=== PATIENT | male | born 1945 | race Caucasian/White ===

== ENCOUNTER 2017-03-31 08:00 | Outpatient (CLI) | payer MEDICARE, OTHER ==
[2017-03-31 19:31] LABS: ALBUMIN/GLOBULIN RATIO 1.4 (1.0-2.2); BILIRUBIN,TOTAL 0.9 mg/dL (0.2-1.0); BUN - BLOOD UREA NITROGEN 16 mg/dL (6-20); CALCIUM 9.3 mg/dL (8.5-10.3); CARBON DIOXIDE - CO2 25 mmol/L (21-32); CHLORIDE 101 mmol/L (101-111); CHOL/HDL RATIO 3.1 (<5.0); CHOLESTEROL 144 mg/dL; CREATININE 1.2 mg/dL (0.6-1.2); GFR - MDRD 60 (>89); GLUCOSE 157 mg/dL (70-100); HDL CHOLESTEROL 46 mg/dL; LDL/HDL RATIO 1.4 (<3.6); POTASSIUM 4.6 mmol/L (3.5-5.0); SODIUM 136 mmol/L (135-145); TOTAL PROTEIN 7.2 g/dL (6.7-8.2); TRIGLYCERIDES 176 mg/dL; VLDL CHOLESTEROL 35 mg/dL
[2017-03-31 20:15] LABS: HEMOGLOBIN A1C 0.89 g/dL
== END 2017-03-31 08:01 | disposition home or self-care (01) ==
LOC: LAB.WCP 08:00
PROVIDERS: ATTEND Physician Assistant Medical
DX: Z51.81 Encounter for therapeutic drug level monitoring (principal); E78.9 Disorder of lipoprotein metabolism, unspecified; E11.9 Type 2 diabetes mellitus without complications
CPT/HCPCS: 36415; 80053; 80061; 83036

== ENCOUNTER 2017-10-14 13:03 | Outpatient (CLI) | payer MEDICARE, OTHER ==
[2017-10-14 19:13] LABS: HB2 TOTAL 15.5 g/dL; HEMOGLOBIN A1C 0.69 g/dL; HEMOGLOBIN A1C % 6.2 % (4.6-6.2)
[2017-10-14 19:20] LABS: ALBUMIN 3.9 g/dL (3.2-5.5); ALBUMIN/GLOBULIN RATIO 1.5 (1.0-2.2); ALKALINE PHOSPHATASE 48 IU/L (42-121); ALT ALANINE AMINOTRANSFERASE 24 IU/L (10-60); AST ASPARTATE AMINOTRANSFERASE 27 IU/L (10-42); BUN - BLOOD UREA NITROGEN 12 mg/dL (6-20); CALCIUM 8.6 mg/dL (8.5-10.3); CARBON DIOXIDE - CO2 26 mmol/L (21-32); CHLORIDE 100 mmol/L (101-111); CHOL/HDL RATIO 2.7 (<5.0); CHOLESTEROL 105 mg/dL; GFR - MDRD 74 (>89); GLUCOSE 128 mg/dL (70-100); HDL CHOLESTEROL 39 mg/dL; LDL CHOLESTEROL,CALCULATED 41 mg/dL; LDL/HDL RATIO 1.1 (<3.6); SODIUM 135 mmol/L (135-145); TOTAL PROTEIN 6.5 g/dL (6.7-8.2); VLDL CHOLESTEROL 25 mg/dL
== END 2017-10-14 13:04 ==
LOC: LAB.WCP 13:03
PROVIDERS: ATTEND Physician Assistant Medical
DX: Z51.81 Encounter for therapeutic drug level monitoring (principal); E78.9 Disorder of lipoprotein metabolism, unspecified; E11.9 Type 2 diabetes mellitus without complications
CPT/HCPCS: 36415; 80053; 80061; 83036; 83721

== ENCOUNTER 2018-05-26 13:11 | Outpatient (CLI) | payer MEDICARE, OTHER ==
[2018-05-26 19:57] LABS: BASOPHILS # (AUTO) 0.1 10^3/uL (0.0-0.1); BASOPHILS % (AUTO) 0.7 %; EOSINOPHILS # (AUTO) 0.3 10^3/uL (0.0-0.7); EOSINOPHILS % (AUTO) 3.2 %; HGB - HEMOGLOBIN 14.3 g/dL (14.0-18.0); LYMPHOCYTES # (AUTO) 2.4 10^3/uL (1.5-3.5); LYMPHOCYTES % (AUTO) 30.8 %; MEAN CORPUSCULAR HEMOGLOBIN 34.6 pg (27.0-31.0); MEAN CORPUSCULAR HGB CONC 33.4 g/dL (32.0-36.0); MEAN CORPUSCULAR VOLUME 103.5 fL (80.0-94.0); MEAN PLATELET VOLUME 11.1 fL (7.4-11.4); MONOCYTES # (AUTO) 0.4 10^3/uL (0.0-1.0); MONOCYTES % (AUTO) 4.9 %; NEUTROPHILS # (AUTO) 4.7 10^3/uL (1.5-6.6); NEUTROPHILS % (AUTO) 60.4 %; PLT - PLATELET COUNT 183 10^3/uL (130-450); RED BLOOD COUNT 4.14 10^6/uL (4.70-6.10); RED CELL DISTRIBUTION WIDTH 13.2 % (12.0-15.0); WHITE BLOOD COUNT 7.8 x10^3/uL (4.8-10.8)
[2018-05-26 20:22] LABS: HB2 TOTAL 14.8 g/dL; HEMOGLOBIN A1C 0.66 g/dL; HEMOGLOBIN A1C % 6.2 % (4.6-6.2)
[2018-05-26 20:24] LABS: ALBUMIN 3.9 g/dL (3.2-5.5); ALBUMIN/GLOBULIN RATIO 1.4 (1.0-2.2); ALKALINE PHOSPHATASE 57 IU/L (42-121); ALT ALANINE AMINOTRANSFERASE 20 IU/L (10-60); AST ASPARTATE AMINOTRANSFERASE 22 IU/L (10-42); BILIRUBIN,TOTAL 0.6 mg/dL (0.2-1.0); BUN - BLOOD UREA NITROGEN 10 mg/dL (6-20); CALCIUM 8.8 mg/dL (8.5-10.3); CARBON DIOXIDE - CO2 26 mmol/L (21-32); CHLORIDE 103 mmol/L (101-111); CHOL/HDL RATIO 2.7 (<5.0); CHOLESTEROL 129 mg/dL; CREATININE 1.1 mg/dL (0.6-1.2); GFR - MDRD 66 (>89); GLUCOSE 121 mg/dL (70-100); HDL CHOLESTEROL 47 mg/dL; LDL CHOLESTEROL,CALCULATED 47 mg/dL; SODIUM 137 mmol/L (135-145); TOTAL PROTEIN 6.7 g/dL (6.7-8.2); VLDL CHOLESTEROL 35 mg/dL
[2018-05-28 13:42] LABS: HEPATITIS C ANTIBODY NON-REACTIVE (NON-REACTIVE)
== END 2018-05-26 23:59 | disposition home or self-care (01) ==
LOC: LAB.WCP 13:11
PROVIDERS: ATTEND Physician Assistant Medical
DX: E11.9 Type 2 diabetes mellitus without complications (principal); Z12.5 Encounter for screening for malignant neoplasm of prostate; E78.9 Disorder of lipoprotein metabolism, unspecified; K21.9 Gastro-esophageal reflux disease without esophagitis; Z11.59 Encounter for screening for other viral diseases
CPT/HCPCS: 36415; 80053; 80061; 82043; 83036; 85025; 86803; G0103; 83721; 84153

== ENCOUNTER → 2019-02-23 | Outpatient (CLI) | payer MEDICARE, OTHER ==
[2019-02-23 18:32] LABS: CALCIUM 8.9 mg/dL (8.5-10.3)
[2019-02-23 18:38] LABS: HB2 TOTAL 14.9 g/dL; HEMOGLOBIN A1C 0.67 g/dL; HEMOGLOBIN A1C % 6.3 % (4.6-6.2)
== END ==
LOC: LAB.WCP 08:00
PROVIDERS: ATTEND Physician Assistant Medical
DX: E11.9 Type 2 diabetes mellitus without complications (principal)
CPT/HCPCS: 36415; 80048; 83036

== ENCOUNTER 2020-08-29 09:58 | Outpatient (CLI) | payer MEDICARE, OTHER ==
[2020-08-29 12:05] LABS: BASOPHILS # (AUTO) 0.1 10^3/uL (0.0-0.1); BASOPHILS % (AUTO) 1.1 %; EOSINOPHILS # (AUTO) 0.4 10^3/uL (0.0-0.7); EOSINOPHILS % (AUTO) 4.7 %; HCT - HEMATOCRIT 44.5 % (42.0-52.0); HGB - HEMOGLOBIN 15.1 g/dL (14.0-18.0); LYMPHOCYTES # (AUTO) 2.1 10^3/uL (1.5-3.5); LYMPHOCYTES % (AUTO) 25.1 %; MEAN CORPUSCULAR HEMOGLOBIN 34.6 pg (27.0-31.0); MEAN CORPUSCULAR HGB CONC 33.9 g/dL (32.0-36.0); MEAN CORPUSCULAR VOLUME 101.8 fL (80.0-94.0); MEAN PLATELET VOLUME 12.8 fL (7.4-11.4); MONOCYTES # (AUTO) 0.5 10^3/uL (0.0-1.0); MONOCYTES % (AUTO) 5.3 %; NEUTROPHILS # (AUTO) 5.4 10^3/uL (1.5-6.6); NEUTROPHILS % (AUTO) 63.4 %; PLT - PLATELET COUNT 210 10^3/uL (130-450); RED BLOOD COUNT 4.37 10^6/uL (4.70-6.10); RED CELL DISTRIBUTION WIDTH 12.5 % (12.0-15.0); WHITE BLOOD COUNT 8.5 x10^3/uL (4.8-10.8)
[2020-08-29 12:58] LABS: ALBUMIN/GLOBULIN RATIO 1.3 (1.0-2.2); ALKALINE PHOSPHATASE 71 IU/L (42-121); ALT ALANINE AMINOTRANSFERASE 34 IU/L (10-60); AST ASPARTATE AMINOTRANSFERASE 23 IU/L (10-42); BILIRUBIN,TOTAL 0.8 mg/dL (0.2-1.0); BUN - BLOOD UREA NITROGEN 18 mg/dL (6-20); CALCIUM 9.4 mg/dL (8.5-10.3); CARBON DIOXIDE - CO2 25 mmol/L (21-32); CHLORIDE 100 mmol/L (101-111); CHOL/HDL RATIO 2.6 (<5.0); CHOLESTEROL 128 mg/dL; CREATININE 1.2 mg/dL (0.6-1.2); GFR - MDRD 59 (>89); GLUCOSE 159 mg/dL (70-100); HDL CHOLESTEROL 50 mg/dL; LDL CHOLESTEROL,CALCULATED 39 mg/dL; LDL/HDL RATIO 0.8 (<3.6); POTASSIUM 4.8 mmol/L (3.5-5.0); SODIUM 135 mmol/L (135-145); TOTAL PROTEIN 7.2 g/dL (6.7-8.2); TRIGLYCERIDES 195 mg/dL; VLDL CHOLESTEROL 39 mg/dL
[2020-08-29 13:05] LABS: THYROID STIMULATING HORMONE 3.1 uIU/mL (0.34-5.60)
[2020-08-29 13:14] LABS: ESTIMATED AVERAGE GLUCOSE 134 mg/dL (70-100); HEMOGLOBIN A1c% 6.3 % (4.27-6.07)
[2020-08-29 13:35] LABS: CREATININE,URINE 120.3 mg/dL; MICROALBUMIN,URINE 0.6 mg/dL (0-300.0)
== END 2020-08-29 23:59 | disposition home or self-care (01) ==
LOC: LAB.WCP 09:58
PROVIDERS: ATTEND Physician Assistant Medical
DX: I10 Essential (primary) hypertension (principal); E11.9 Type 2 diabetes mellitus without complications; E78.5 Hyperlipidemia, unspecified
CPT/HCPCS: 36415; 80053; 80061; 82043; 82570; 83036; 83721; 84443; 85025

== ENCOUNTER 2021-02-12 08:00 | Outpatient (CLI) | payer MEDICARE, OTHER | END 2021-02-12 23:59 | disposition home or self-care (01) | LOC: LAB.N 08:00 | PROVIDERS: ATTEND Nurse Practitioner | DX: R30.0 Dysuria (principal) | CPT/HCPCS: 87086 ==

== ENCOUNTER 2021-02-21 13:12 | Outpatient (CLI) | payer MEDICARE, OTHER ==
[2021-02-21 18:21] LABS: CREATININE,URINE 81.8 mg/dL; MICROALBUMIN,URINE 0.9 mg/dL (0-300.0)
[2021-02-21 18:36] LABS: ALBUMIN 3.8 g/dL (3.2-5.5); ALBUMIN/GLOBULIN RATIO 1.2 (1.0-2.2); ALKALINE PHOSPHATASE 63 IU/L (42-121); ALT ALANINE AMINOTRANSFERASE 42 IU/L (10-60); AST ASPARTATE AMINOTRANSFERASE 26 IU/L (10-42); BILIRUBIN,TOTAL 0.7 mg/dL (0.2-1.0); BUN - BLOOD UREA NITROGEN 16 mg/dL (6-20); CALCIUM 9.3 mg/dL (8.5-10.3); CARBON DIOXIDE - CO2 24 mmol/L (21-32); CHLORIDE 106 mmol/L (101-111); CHOLESTEROL 109 mg/dL; CREATININE 1.4 mg/dL (0.6-1.2); GFR - MDRD 50 (>89); GLUCOSE 129 mg/dL (70-100); HDL CHOLESTEROL 46 mg/dL; POTASSIUM 4.5 mmol/L (3.5-5.0); SODIUM 140 mmol/L (135-145); TOTAL PROTEIN 6.9 g/dL (6.7-8.2); TRIGLYCERIDES 165 mg/dL; VLDL CHOLESTEROL 33 mg/dL
[2021-02-21 18:37] LABS: CHOL/HDL RATIO 2.4 (<5.0); LDL CHOLESTEROL,CALCULATED 30 mg/dL; LDL/HDL RATIO 0.7 (<3.6)
[2021-02-21 20:10] LABS: ESTIMATED AVERAGE GLUCOSE 151 mg/dL (70-100); HEMOGLOBIN A1c% 6.9 % (4.27-6.07)
== END 2021-02-21 23:59 | disposition home or self-care (01) ==
LOC: LAB.WCP 13:12
PROVIDERS: ATTEND Physician Assistant Medical
DX: E11.9 Type 2 diabetes mellitus without complications (principal); E78.5 Hyperlipidemia, unspecified
CPT/HCPCS: 36415; 80053; 80061; 82043; 82570; 83036; 83721

== ENCOUNTER 2022-04-17 13:57 | Outpatient (CLI) | payer MEDICARE, OTHER ==
[2022-04-17 18:15] LABS: BUN - BLOOD UREA NITROGEN 17 mg/dL (6-20); CALCIUM 9.4 mg/dL (8.5-10.3); CARBON DIOXIDE - CO2 28 mmol/L (21-32); CHLORIDE 102 mmol/L (101-111); CHOL/HDL RATIO 2.4 (<5.0); CHOLESTEROL 123 mg/dL; CREATININE 1.3 mg/dL (0.6-1.2); GFR - MDRD 54 (>89); GLUCOSE 136 mg/dL (70-100); HDL CHOLESTEROL 51 mg/dL; LDL CHOLESTEROL,CALCULATED 37 mg/dL; LDL/HDL RATIO 0.7 (<3.6); SODIUM 139 mmol/L (135-145); TRIGLYCERIDES 176 mg/dL; VLDL CHOLESTEROL 35 mg/dL
[2022-04-17 20:45] LABS: ESTIMATED AVERAGE GLUCOSE 148 mg/dL (70-100); HEMOGLOBIN A1c% 6.8 % (4.27-6.07)
== END 2022-04-17 13:58 | disposition home or self-care (01) ==
LOC: LAB.N 13:57
PROVIDERS: ATTEND Physician Assistant Medical
DX: E11.9 Type 2 diabetes mellitus without complications (principal); E78.5 Hyperlipidemia, unspecified
CPT/HCPCS: 36415; 80048; 80061; 83036; 83721

== ENCOUNTER 2022-05-22 12:20 | Outpatient (CLI) | payer MEDICARE, OTHER | END 2022-05-22 12:21 | disposition home or self-care (01) | LOC: DI 12:20 | PROVIDERS: ATTEND Physician Assistant Medical | DX: I35.1 Nonrheumatic aortic (valve) insufficiency (principal); I35.8 Other nonrheumatic aortic valve disorders; I51.7 Cardiomegaly; I48.91 Unspecified atrial fibrillation; I77.810 Thoracic aortic ectasia | CPT/HCPCS: 93306 ==

== ENCOUNTER 2022-07-09 07:09 | Day surgery (SDC) | payer MEDICARE, OTHER ==
[2022-07-09] MEDS ORDERED: LACTATED RINGERS 1,000 ML IV ONE (07:17)
[2022-07-09] MEDS ORDERED: PROPOFOL 500 MG/50 ML 500 MG/50 ML VIAL ONE (08:15)
--- NOTE | 2022-07-09 08:43 | ANESTHESIA ---
Pre-Anesthesia VS, & Labs - Diagnosis screening - Procedure colonoscopy Vital Signs: Temp Pulse Resp BP Pulse Ox O2 Flow Rate 36 C L 55 L 16 123/80 96 07/09/22 07:23 07/09/22 07:23 07/09/22 07:23 07/09/22 07:23 07/09/22 07:23 Height: 5 ft 9 in Weight (kg): 91 kg Body Mass Index: 29.6 BMI Classification: Overweight - NPO >8 hours - Lab Results Current Lab Results: Laboratory Tests 07/09/22 07:42: POC Whole Bld Glucose 162 H Home Medications and Allergies Home Medications: Ambulatory Orders Apixaban [Eliquis] 1 tab PO DAILY 07/08/22 Aspirin [[place] Aspirin] 1 tab PO DAILY 07/08/22 Felodipine [Felodipine ER] 1 tab PO DAILY 07/08/22 Gabapentin [Neurontin] 600 mg PO TID 07/08/22 Lisinopril [Zestril] 1 tab PO DAILY 07/08/22 Propranolol ER [Inderal LA] 1 tab PO DAILY 07/08/22 Simvastatin [Zocor] 1 tab PO HS 07/08/22 metFORMIN [Glucophage] 2 tab PO BID 07/08/22 Apixaban [Eliquis] 1 tab PO DAILY 07/08/22 Aspirin [[place] Aspirin] 1 tab PO DAILY 07/08/22 Felodipine [Felodipine ER] 1 tab PO DAILY 07/08/22 Gabapentin [Neurontin] 600 mg PO TID 07/08/22 Lisinopril [Zestril] 1 tab PO DAILY 07/08/22 Propranolol ER [Inderal LA] 1 tab PO DAILY 07/08/22 Simvastatin [Zocor] 1 tab PO HS 07/08/22 metFORMIN [Glucophage] 2 tab PO BID 07/08/22 Allergies/Adverse Reactions: Allergies Allergy/AdvReac Type Severity Reaction Status Date / Time No Known Drug Allergies Allergy Verified 07/08/22 12:54 Anes History & Medical History - Anesthetic History Anesthesia Complications: reports: No previous complications - Medical History Cardiovascular: reports: Hypertension, High cholesterol, Atrial fibrillation Pulmonary: Endocrine/Autoimmune: reports: Type 2 diabetes Exam Dental: WNL Mouth Opening: Greater than 4 Fingerbreadths Neck Mobility: Normal Mallampati classification: III Thyromental Distance: greater than 6 cm Respiratory: Lungs clear Cardiovascular: Regular rate Plan Anesthesia Type: Total IV Consent for Procedure(s) Verified and Reviewed: Yes Code Status: Attempt Resuscitation ASA classification: 3-Severe systemic disease Is this case an emergency?: No
[2022-07-09] MEDS ORDERED: LACTATED RINGERS 450 ML IV ONE (09:20)
--- NOTE | 2022-07-09 09:29 | ANESTHESIA POST OP EVALUATION ---
Anesthesia Post Eval - Post Anesthesia Eval Vitals: Last Vital Signs Temp 36.2 C L 07/09/22 09:27 Pulse 74 07/09/22 09:27 Resp 16 07/09/22 09:27 BP 107/63 07/09/22 09:27 Pulse Ox 96 07/09/22 09:27 O2 Flow Rate CV Function Including HR & BP: Stable Pain Control: Satisfactory Nausea & Vomiting: Negative Mental Status: Baseline Respiratory Status: Airway Patent Hydration Status: Satisfactory Anesthesia Complications: None
[2022-07-09 09:52] VITALS: BP 129/80
== END 2022-07-09 07:10 | disposition home or self-care (01) ==
LOC: SDS 07:09
PROVIDERS: ATTEND Surgery
PROC: 0DBN8ZZ Excision of Sigmoid Colon, Via Natural or Artificial Opening Endoscopic (ICD-10-PCS; principal; 2022-07-09 08:30)
DX: Z12.11 Encounter for screening for malignant neoplasm of colon (principal); K63.5 Polyp of colon; K57.30 Diverticulosis of large intestine without perforation or abscess without bleeding; K64.8 Other hemorrhoids; E11.9 Type 2 diabetes mellitus without complications; I48.91 Unspecified atrial fibrillation; Z87.891 Personal history of nicotine dependence; Z79.01 Long term (current) use of anticoagulants
CPT/HCPCS: 45380; J7120

== ENCOUNTER 2022-10-22 13:33 | Outpatient (CLI) | payer MEDICARE, OTHER ==
[2022-10-22 18:33] LABS: ESTIMATED AVERAGE GLUCOSE 148 mg/dL (70-100); HEMOGLOBIN A1c% 6.8 % (4.27-6.07)
[2022-10-22 18:42] LABS: ALBUMIN 3.8 g/dL (3.2-5.5); ALBUMIN/GLOBULIN RATIO 1.2 (1.0-2.2); BILIRUBIN,TOTAL 0.6 mg/dL (0.2-1.0); CALCIUM 9.1 mg/dL (8.5-10.3); CREATININE 1.2 mg/dL (0.6-1.2); POTASSIUM 4.9 mmol/L (3.5-5.0)
== END 2022-10-22 13:34 | disposition home or self-care (01) ==
LOC: LAB.N 13:33
PROVIDERS: ATTEND Physician Assistant Medical
DX: E11.9 Type 2 diabetes mellitus without complications (principal)
CPT/HCPCS: 36415; 80053; 83036

== ENCOUNTER 2023-04-29 12:45 | Outpatient (CLI) | payer MEDICARE, OTHER ==
[2023-04-29 17:55] LABS: BASOPHILS # (AUTO) 0.1 10^3/uL (0.0-0.1); BASOPHILS % (AUTO) 0.9 %; EOSINOPHILS # (AUTO) 0.5 10^3/uL (0.0-0.7); EOSINOPHILS % (AUTO) 5.2 %; HCT - HEMATOCRIT 47.1 % (42.0-52.0); HGB - HEMOGLOBIN 15.1 g/dL (14.0-18.0); LYMPHOCYTES # (AUTO) 3.1 10^3/uL (1.5-3.5); LYMPHOCYTES % (AUTO) 33.9 %; MEAN CORPUSCULAR HEMOGLOBIN 33.9 pg (27.0-31.0); MEAN CORPUSCULAR HGB CONC 32.1 g/dL (32.0-36.0); MEAN CORPUSCULAR VOLUME 105.6 fL (80.0-94.0); MEAN PLATELET VOLUME 12.4 fL (7.4-11.4); MONOCYTES # (AUTO) 0.5 10^3/uL (0.0-1.0); MONOCYTES % (AUTO) 5.6 %; NEUTROPHILS # (AUTO) 4.9 10^3/uL (1.5-6.6); NEUTROPHILS % (AUTO) 54.1 %; PLT - PLATELET COUNT 213 10^3/uL (130-450); RED BLOOD COUNT 4.46 10^6/uL (4.70-6.10); RED CELL DISTRIBUTION WIDTH 12.8 % (12.0-15.0); WHITE BLOOD COUNT 9.1 x10^3/uL (4.8-10.8)
[2023-04-29 18:20] LABS: ALBUMIN 4.1 g/dL (3.2-5.5); ALBUMIN/GLOBULIN RATIO 1.6 (1.0-2.2); ALKALINE PHOSPHATASE 67 IU/L (42-121); ALT ALANINE AMINOTRANSFERASE 30 IU/L (10-60); AST ASPARTATE AMINOTRANSFERASE 27 IU/L (10-42); BILIRUBIN,TOTAL 0.6 mg/dL (0.2-1.0); BUN - BLOOD UREA NITROGEN 14 mg/dL (6-20); CALCIUM 9.6 mg/dL (8.5-10.3); CARBON DIOXIDE - CO2 28 mmol/L (21-32); CHLORIDE 103 mmol/L (101-111); CHOL/HDL RATIO 2.1 (<5.0); CHOLESTEROL 120 mg/dL; CREATININE 1.2 mg/dL (0.6-1.3); GFR - MDRD 59 (>89); GLUCOSE 126 mg/dL (74-104); HDL CHOLESTEROL 57 mg/dL; LDL CHOLESTEROL,CALCULATED 28 mg/dL; LDL/HDL RATIO 0.5 (<3.6); POTASSIUM 4.8 mmol/L (3.5-4.5); SODIUM 137 mmol/L (135-145); TOTAL PROTEIN 6.6 g/dL (6.4-8.9); TRIGLYCERIDES 175 mg/dL (48-352); VLDL CHOLESTEROL 35 mg/dL
[2023-04-29 18:27] LABS: CREATININE,URINE 126.2 mg/dL; MICROALBUM/CREATININE RATIO,UR 14.3 ug/mg (<30.0); MICROALBUMIN,URINE 1.8 mg/dL
[2023-04-29 18:52] LABS: THYROID STIMULATING HORMONE 1.82 uIU/mL (0.34-5.60)
[2023-04-29 20:19] LABS: ESTIMATED AVERAGE GLUCOSE 137 mg/dL (70-100); HEMOGLOBIN A1c% 6.4 % (4.27-6.07)
== END 2023-04-29 12:46 | disposition home or self-care (01) ==
LOC: LAB.N 12:45
PROVIDERS: ATTEND Physician Assistant Medical
DX: E11.9 Type 2 diabetes mellitus without complications (principal); K21.9 Gastro-esophageal reflux disease without esophagitis
CPT/HCPCS: 36415; 80053; 80061; 82043; 82570; 83036; 83721; 84443; 85025

== ENCOUNTER 2023-10-27 13:13 | Outpatient (CLI) | payer MEDICARE, OTHER ==
[2023-10-27 17:53] LABS: CALCIUM 9.3 mg/dL (8.5-10.3); CREATININE 1.4 mg/dL (0.6-1.3); POTASSIUM 4.8 mmol/L (3.5-4.5)
[2023-10-27 21:10] LABS: ESTIMATED AVERAGE GLUCOSE 146 mg/dL (70-100); HEMOGLOBIN A1c% 6.7 % (4.27-6.07)
== END 2023-10-27 13:14 | disposition home or self-care (01) ==
LOC: LAB.N 13:13
PROVIDERS: ATTEND Physician Assistant Medical
DX: E11.9 Type 2 diabetes mellitus without complications (principal)
CPT/HCPCS: 36415; 80048; 83036

== ENCOUNTER 2023-12-21 15:00 | Outpatient (CLI) | payer MEDICARE, OTHER | END 2023-12-21 23:59 | disposition critical access hospital (66) | LOC: EMS 15:00 | DX: R07.81 Pleurodynia (principal); R09.89 Other specified symptoms and signs involving the circulatory and respiratory systems; R06.02 Shortness of breath; R53.83 Other fatigue; Z91.81 History of falling; I48.91 Unspecified atrial fibrillation | CPT/HCPCS: A0425; A0427 ==

== ENCOUNTER 2023-12-21 15:32 | Inpatient (IN) | payer MEDICARE, OTHER ==
--- NOTE | 2023-12-21 15:51 | ED Physician Documentation ---
History of Present Illness - Stated complaint Stated Complaint: COUGH - Chief complaint Chief Complaint: Resp - History obtained from History obtained from: Patient - History of Present Illness Timing: How many days ago (10) Pain level max: 5 Pain level now: 5 - Additonal information Additional information: 78-year-old male presents to the emergency department stating that he had a fall about 10 days ago. He states he was leaving the dentist office when he tripped over a curb and hit his left ribs. He is complaining of left anterior rib pain since that time. He states he has developed a cough as well. EMS states that when they found him he was approximately 86% on room air. He does have a history of atrial fibrillation. Heart rate was anywhere from 90-150 with EMS. No calf pain or tenderness. No leg swelling. No history of PE. He is on Eliquis. He is unsure if he struck his head or not. Was not seen after the fall. No headache. No vomiting. Only chest pain with left anterior chest with coughing. He states he does not feel short of breath. Review of Systems Constitutional: denies: Fever, Chills GI: denies: Vomiting, Diarrhea Musculoskeletal: denies: Neck pain, Back pain Neurologic: denies: Headache PD PAST MEDICAL HISTORY - Past Medical History Cardiovascular: Hypertension, High cholesterol, Atrial fibrillation Respiratory:  Endocrine/Autoimmune: Type 2 diabetes - Present Medications Home Medications: Ambulatory Orders Medication Instructions Recorded Confirmed Apixaban [Eliquis] 1 tab PO DAILY 07/08/22 12/21/23 Aspirin [[place] Aspirin] 1 tab PO DAILY 07/08/22 12/21/23 Felodipine [Felodipine ER] 1 tab PO DAILY 07/08/22 12/21/23 Gabapentin [Neurontin] 600 mg PO TID 07/08/22 12/21/23 Lisinopril [Zestril] 1 tab PO DAILY 07/08/22 12/21/23 Propranolol ER [Inderal LA] 1 tab PO DAILY 07/08/22 12/21/23 Simvastatin [Zocor] 1 tab PO HS 07/08/22 12/21/23 metFORMIN [Glucophage] 2 tab PO BID 07/08/22 12/21/23 - Allergies Allergies/Adverse Reactions: Allergies Allergy/AdvReac Type Severity Reaction Status Date / Time No Known Drug Allergies Allergy Verified 12/21/23 15:46 PD ED PE NORMAL - Vitals Vital signs reviewed: Yes - General General: Alert and oriented X 3, No acute distress - HEENT HEENT: Moist mucous membranes - Neck Neck: Supple, no meningeal sign - Cardiac Cardiac: Other (Tachycardic, irregular) - Respiratory Respiratory: Other (Crackles bilaterally, wheezing) - Abdomen Abdomen: Soft, Non tender, Non distended - Derm Derm: Warm and dry - Extremities Extremities: No edema, No calf tenderness / cord - Neuro Neuro: Alert and oriented X 3 - Psych Psych: Normal mood, Normal affect Results - Vitals Vitals: Vital Signs - 24 hr 12/21/23 12/21/23 12/21/23 15:47 16:34 16:35 Temperature 37 C Heart Rate 143 H 122 H 123 H Respiratory 20 19 19 Rate Blood Pressure 161/97 H 132/76 H 111/85 H O2 Saturation 88 L 86 L 88 L If not protocol 5 4 : Oxygen Flow, liters/minute 12/21/23 12/21/23 12/21/23 16:40 16:46 17:00 Temperature Heart Rate 123 H 111 H 138 H Respiratory 18 18 18 Rate Blood Pressure 132/70 H 146/71 H 153/81 H O2 Saturation 95 94 96 If not protocol 5 5 : Oxygen Flow, liters/minute 12/21/23 12/21/23 17:17 18:35 Temperature Heart Rate 102 H 97 Respiratory 18 28 H Rate Blood Pressure 145/70 H 128/68 O2 Saturation 94 90 L If not protocol 5 4 : Oxygen Flow, liters/minute Oxygen O2 Source Nasal cannula - EKG (time done) 1551 EKG releavant findings:: EKG personally interpreted by author of this note. Relevant findings are: Rate: Rate (enter#) (142) Rhythm: Atrial fibrillation (RVR) [place]: Normal QRS: Normal Ischemia: Non specific changes - Labs Labs: Laboratory Tests 12/21/23 12/21/23 12/21/23 15:53 15:53 15:53 WBC 10.3 RBC 4.20 L Hgb 13.9 L Hct 42.0 MCV 100.0 H MCH 33.1 H MCHC 33.1 RDW 12.4 Plt Count 266 MPV 11.8 H Neut # (Auto) 7.7 H Lymph # (Auto) 1.8 [place] # (Auto) 0.5 Eos # (Auto) 0.2 Baso # (Auto) 0.0 Absolute Nucleated RBC 0.00 Nucleated RBC % 0.0 Sodium 135 Potassium 3.3 L Chloride 100 L Carbon Dioxide 23 Anion Gap 12.0 BUN 24 H Creatinine 0.9 Estimated GFR (MDRD) 82 L Glucose 202 H Calcium 9.1 Total Bilirubin 0.5 AST 17 ALT 16 Alkaline Phosphatase 73 B-Natriuretic Peptide 274 H Total Protein 6.5 Albumin 3.2 Globulin 3.3 Albumin/Globulin Ratio 1.0 Lipase 22 Nasal Adenovirus (PCR) Nasal B. parapertussis DNA (PCR) Nasal Coronavir 229E PCR Nasal Coronavir HKU1 PCR Nasal Coronavir NL63 PCR Nasal Coronavir OC43 PCR Nasal Enterovir/Rhinovir PCR Nasal Influenza B PCR Nasal Influenza A PCR Nasal Parainfluen 1 PCR Nasal Parainfluen 2 PCR Nasal Parainfluen 3 PCR Nasal Parainfluen 4 PCR Nasal RSV (PCR) Nasal B.pertussis DNA PCR Nasal C.pneumoniae (PCR) [place] Human Metapneumo PCR Nasal M.pneumoniae (PCR) Nasal SARS-CoV-2 (PCR) 12/21/23 15:55 WBC RBC Hgb Hct MCV MCH MCHC RDW Plt Count MPV Neut # (Auto) Lymph # (Auto) [place] # (Auto) Eos # (Auto) Baso # (Auto) Absolute Nucleated RBC Nucleated RBC % Sodium Potassium Chloride Carbon Dioxide Anion Gap BUN Creatinine Estimated GFR (MDRD) Glucose Calcium Total Bilirubin AST ALT Alkaline Phosphatase B-Natriuretic Peptide Total Protein Albumin Globulin Albumin/Globulin Ratio Lipase Nasal Adenovirus (PCR) NOT DETECTED Nasal B. parapertussis DNA (PCR) NOT DETECTED Nasal Coronavir 229E PCR NOT DETECTED Nasal Coronavir HKU1 PCR NOT DETECTED Nasal Coronavir NL63 PCR NOT DETECTED Nasal Coronavir OC43 PCR NOT DETECTED Nasal Enterovir/Rhinovir PCR NOT DETECTED Nasal Influenza B PCR NOT DETECTED Nasal Influenza A PCR NOT DETECTED Nasal Parainfluen 1 PCR NOT DETECTED Nasal Parainfluen 2 PCR NOT DETECTED Nasal Parainfluen 3 PCR NOT DETECTED Nasal Parainfluen 4 PCR NOT DETECTED Nasal RSV (PCR) NOT DETECTED Nasal B.pertussis DNA PCR NOT DETECTED Nasal C.pneumoniae (PCR) NOT DETECTED [place] Human Metapneumo PCR NOT DETECTED Nasal M.pneumoniae (PCR) NOT DETECTED Nasal SARS-CoV-2 (PCR) DETECTED A - Rads (name of study) head CT Relevant Findings:: Final report received, See rad report chest CT Relevant Findings:: Final report received, See rad report PD Medical Decision Making - ED course Complexity details: reviewed results, re-evaluated patient, considered differential, d/w patient, d/w toy consultant ED course: 78-year-old male positive for COVID, has hypoxia secondary to COVID. Incidentally he did have a fall 10 days ago and suffered multiple rib fractures, is not having significant pain with this. Had atrial fibrillation with rapid ventricular response, this was easily controlled with 2 pushes of IV diltiazem 10 mg each. He was then maintained on oral Cardizem 60 mg p.o. Does not need a diltiazem drip. I consulted the hospitalist at approximately 5:15 PM. The hospitalist, Dr. Leigh, is concerned that the patient may develop RVR again and need a diltiazem gtt, therefore could need the icu later in the hospital stay. He also request that the general surgery service be consulted for the 10-day old rib fractures. I did speak with Dr. Orosco, he will consult on the patient, these are not acute rib fractures and these do not need acute management from the surgical service. The patient was maintained on oxygen in the emergency department, does not need antibiotics at this time. I re- contacted the daytime hospitalist who states that is now after 6 PM and the patient will need to be admitted to the nighttime hospitalist after 7 PM. Therefore the patient will continue to be boarded in the emergency department. Departure - Departure Disposition: 66 [facility] DC/Xfer Clinical Impression: Hypoxia, COVID Atrial fibrillation Qualifiers: Atrial fibrillation type: unspecified Qualified Code(s): I48.91 - Unspecified atrial fibrillation Ribs, multiple fractures Qualifiers: Encounter type: initial encounter Fracture type: closed Laterality: left Qualified Code(s): S22.42XA - Multiple fractures of ribs, left side, initial encounter for closed fracture Condition: Stable Forms: PCP List
[2023-12-21 15:59] LABS: BASOPHILS % (AUTO) 0.2 %; EOSINOPHILS # (AUTO) 0.2 10^3/uL (0.0-0.7); EOSINOPHILS % (AUTO) 2.2 %; HGB - HEMOGLOBIN 13.9 g/dL (14.0-18.0); LYMPHOCYTES # (AUTO) 1.8 10^3/uL (1.5-3.5); LYMPHOCYTES % (AUTO) 17.1 %; MEAN CORPUSCULAR HEMOGLOBIN 33.1 pg (27.0-31.0); MEAN CORPUSCULAR HGB CONC 33.1 g/dL (32.0-36.0); MEAN PLATELET VOLUME 11.8 fL (7.4-11.4); MONOCYTES # (AUTO) 0.5 10^3/uL (0.0-1.0); NEUTROPHILS # (AUTO) 7.7 10^3/uL (1.5-6.6); NEUTROPHILS % (AUTO) 75.1 %; PLT - PLATELET COUNT 266 10^3/uL (130-450); RED CELL DISTRIBUTION WIDTH 12.4 % (12.0-15.0); WHITE BLOOD COUNT 10.3 x10^3/uL (4.8-10.8)
[2023-12-21 16:14] LABS: ALBUMIN 3.2 g/dL (3.2-5.5); BILIRUBIN,TOTAL 0.5 mg/dL (0.2-1.0); CALCIUM 9.1 mg/dL (8.5-10.3); CREATININE 0.9 mg/dL (0.6-1.3); POTASSIUM 3.3 mmol/L (3.5-4.5); TOTAL PROTEIN 6.5 g/dL (6.4-8.9)
--- NOTE | 2023-12-21 16:21 | CT Report ---
PROCEDURE: Head WO INDICATIONS: fall, head injury 10 days ago, on eliquis TECHNIQUE: Noncontrast 4.5 mm thick angled axial sections acquired from the foramen magnum to the vertex. For r adiation dose reduction, the following was used: automated exposure control, adjustment of mA and/or kV according to patient size. COMPARISON: None. FINDINGS: Image quality: Excellent. CSF spaces: Basal cisterns are patent. No extra-axial fluid collections. Ventricles are normal in size and shape. Brain: No midline shift. No intracranial masses or hemorrhage. Age-related global volume loss and chronic microvascular ischemic changes. Intracranial atherosclerotic vascular calcifications. Candelario-w natalie matter interface is normal. Skull and face: Calvarium and visualized facial bones are intact, without suspicious lesions. Bilat eral lens replacements. The orbits are otherwise normal in appearance. Sinuses: Visualized sinuses and mastoids are clear. IMPRESSION: No acute intracranial pathology. Reviewed by: Patrick Kern MD on 12/21/2023 4:19 PM PDT Approved by: Patrick Kern MD on 12/21/2023 4:19 PM PDT Station ID: [id number]
[2023-12-21] MEDS: diltiaZEM INJ 5 MG/ML VIAL IVP STA ×2 (16:24→17:06)
--- NOTE | 2023-12-21 16:32 | CT Report ---
PROCEDURE: Chest WO INDICATIONS: fall, L sided rib pain x 10 days TECHNIQUE: A CT scan of the chest was performed. Intravenous contrast media was not administered. Images were re corded and evaluated at appropriate window settings. Reformats: axial MIP of the chest, coronal and s agittal. For radiation dose reduction, the following was used: automated exposure control, adjustment of mA and/or kV according to patient size. COMPARISON: None. FINDINGS: Image quality: Diagnostic. Chest wall and lower neck: No thyroid nodule which requires sonographic follow up. No axillary or sup raclavicular adenopathy by size. Lungs and pleura: Multifocal peripheral groundglass opacities. No pleural effusions. No pneumothorax . No suspicious pulmonary nodules which require follow up. Mediastinum: Heart size is normal. No pericardial effusion. No large vessel abnormality. No mediastin al adenopathy by size criteria. Three-vessel coronary calcifications. Bones: No aggressive osseous abnormality. Displaced left anterolateral eighth through 10th rib fractu res. Suspected mildly displaced anterior fourth left rib fracture. Upper Abdomen: Moderate right-sided hydronephrosis. Cholelithiasis. Surgical clips in the left upper quadrant. IMPRESSION: Displaced left anterolateral 8th-10th rib fractures and suspected displaced anterior 4th rib fracture . No pneumothorax. Multifocal peripheral ground glass opacities, concerning for viral or atypical pneumonia (COVID inclu ded). Moderate right-sided renal hydronephrosis. Consider abdominal CT to determine etiology. Reviewed by: Wood Andersen MD on 12/21/2023 3:30 PM JAY Approved by: Wood Andersen MD on 12/21/2023 3:30 PM AKDT Station ID: [id number]
[2023-12-21 16:56] LABS: CORONAVIRUS 229E-RESP PCR NOT DETECTED; CORONAVIRUS HKU1-RESP PCR NOT DETECTED; CORONAVIRUS NL63-RESP PCR NOT DETECTED; CORONAVIRUS OC43-RESP PCR NOT DETECTED
[2023-12-21 16:57] LABS: B. PARAPERTUSSIS- RESP PCR PAN NOT DETECTED; B. PERTUSSIS- RESP PCR PANEL NOT DETECTED; C. PNEUMONIAE- RESP PCR PANEL NOT DETECTED; HUMAN METAPNEUMOVIRUS NOT DETECTED; INFLUENZA A- RESP PCR PANEL NOT DETECTED; INFLUENZA B - RESP PCR PANEL NOT DETECTED; M. PNEUMONIAE- RESP PCR PANEL NOT DETECTED; PARAINFLUENZA VIRUS 1 NOT DETECTED; PARAINFLUENZA VIRUS 2 NOT DETECTED; PARAINFLUENZA VIRUS 3 NOT DETECTED; PARAINFLUENZA VIRUS 4 NOT DETECTED; RHINOVIRUS/ENTEROVIRUS NOT DETECTED; RSV- RESP PCR PANEL NOT DETECTED; SARS-CoV-2 -RESP PCR PANEL DETECTED
[2023-12-21] MEDS: methylPREDNISolone SUCCINATE 125 MG/2 ML VIAL IVP STA (17:03)
[2023-12-21] MEDS ORDERED: diltiaZEM CD 120 MG CAPSULE PO STA (17:10)
[2023-12-21] MEDS: diltiaZEM 30 MG TABLET PO STA (17:20)
--- NOTE | 2023-12-21 19:18 | CONSULTATION NOTE ---
Surgery Consult - Consult Date Consult Date: 12/21/23 Requesting Provider: Steven - Chief Complaint Chief Complaint: Left chest pain with cough - Home Meds/Allergies Home Medications: Patient History Medication Instructions Recorded Confirmed Apixaban [Eliquis] 1 tab PO DAILY 07/08/22 12/21/23 Aspirin [[place] Aspirin] 1 tab PO DAILY 07/08/22 12/21/23 Felodipine [Felodipine ER] 1 tab PO DAILY 07/08/22 12/21/23 Gabapentin [Neurontin] 600 mg PO TID 07/08/22 12/21/23 Lisinopril [Zestril] 1 tab PO DAILY 07/08/22 12/21/23 Propranolol ER [Inderal LA] 1 tab PO DAILY 07/08/22 12/21/23 Simvastatin [Zocor] 1 tab PO HS 07/08/22 12/21/23 metFORMIN [Glucophage] 2 tab PO BID 07/08/22 12/21/23 Allergies/Adverse Reactions: Allergies Allergy/AdvReac Type Severity Reaction Status Date / Time No Known Drug Allergies Allergy Verified 12/21/23 15:46 - Vital Signs Vital Signs: Last Vital Signs Temp 98.6 F 12/21/23 15:47 Pulse 97 12/21/23 18:35 Resp 28 H 12/21/23 18:35 BP 128/68 12/21/23 18:35 Pulse Ox 90 L 12/21/23 18:35 O2 Flow Rate 4 12/21/23 18:35 - Lab Results Result Diagrams: 12/21/23 15:53 12/21/23 15:53 - Consultation Note Consultation Note: General Surgery Consultation Note - Rib Fracture Protocol Assessment: 1) Fracture left ribs 8-10 (deshaun-lateral); ? left 4th rib fracture. The fractures are 10 days old. 2) Covid respiratory illness Recommendation: 1) Lidocaine patch left chest wall. Change q 12 hrs 2) Acetaminophen, Ibuprofen/Ketorolac and Pepcid, Gabapentin, Wray or Ox ycodone 3) IV Dilaudid as needed 4) IS 5-6 x per hour 5) Supplemental oxygen as needed 6) Dangle at bedside/ambulate 4-6 x a day 7) Consider epidural catheter (consult anesthesia) if above analgesic measures fail to provide enough relief for adequate pulmonary hygiene 8) As he is 10 days out from the accident, oral Tylenol and Ibuprofen may be all that is required. 9) Surgery will follow <><><><><> Reason for Consultation Rib fractures Chief Complaint Cough, chest pain HPI Agustín is a 78 year old male who fell 10 days ago after tripping on a curb. He landed on his left chest and has had discomfort there since the fall. He has also developed a cough which is making the chest wall pain worse. he was found to have two left rib fractures and to be SARs CoV2 +. Agustín was admitted to the Adult Medical Hospitalist Service and the General Surgery Service was asked to assist in his evaluation and management per Hospital Acute Rib Fracture Policy. Past Medical History HTN, Hypercholesterolemia, Atrial fibrillation, Type 2 DM Past Surgical History - See above Family History - See above Social History - See above Current Medications - List (On Eliquis) Allergies - None ROS Pertinent positives Cough, anterior left chest pain All other reviewed systems negative VS - See above PE GENERAL APPEARANCE: Normal development, normal body habitus, normal grooming PSYCHIATRIC: AAO; Comfortable EYES: Pupils equal, round and reactive to light, sclera anicteric EARS, NOSE, MOUTH, THROAT: Hearing normal, Oral mucous membranes moist and without lesions; Teeth in good repair NECK: No crepitus, lymphadenopathy, or thyromegaly LUNGS: Clear to auscultation without wheezing; No use of accessory muscles to breathe CHEST WALL: Tenderness left anterior chest wall - no flail or crepitus SKIN: Anicteric; No rashes, lesions, Ulcerations Labs - See above Imaging Chest CT - left ribs 8-10 with evidence of fracture with minimal displacement, no pneumothorax; ? fracture 4th rib anteriorly All images were personally reviewed by me for this encounter. Rishi Orosco, [facility] General Surgery Service
[2023-12-21] MEDS: ALBUTEROL NEB 2.5 MG/3 ML INH STA (19:25)
--- NOTE | 2023-12-21 20:15 | CT Report ---
PROCEDURE: Abdomen/Pelvis WO INDICATIONS: Right hydro TECHNIQUE: A CT scan of the abdomen and pelvis was performed without the use of intravenous contrast. Images we re recorded and evaluated at appropriate window settings. Reformats: coronal and sagittal. For radiat ion dose reduction, the following was used: automated exposure control, adjustment of mA and/or kV ac cording to patient size. COMPARISON: CT chest 12/21/2023. FINDINGS: Image quality: Diagnostic. Lower chest: Please see separately dictated same day acquired CT chest Liver: No contour-deforming mass. Gallbladder: Cholelithiasis without wall thickening. Biliary tree: No intrahepatic or extrahepatic dilation, accounting for age. Spleen: No splenomegaly. Pancreas: No pancreatic ductal dilation. Adrenals: Left adrenal gland is surgically absent. No discrete nodules in the right adrenal gland. Kidneys and ureters: Nonobstructing punctate 2 mm right interpolar calculus. Moderate to severe right hydroureteronephrosis. No structural urolithiasis. No contour-deforming mass. Stomach, bowel and peritoneum: No gastric or small bowel dilation. No abnormal wall thickening. No pa thologic free fluid. Normal appendix. Lymph nodes: No central or retroperitoneal adenopathy. Vessels: No infrarenal aortic aneurysm. Dense aortobiiliac atherosclerotic calcifications. Reproductive organs: Unremarkable. Bladder: Bladder wall thickness is normal. Probable bladder diverticula. Multiple calcified bladder s tones (at least 10), some of which are large conglomerates and may be at the ureterovesicular junctio n. Pelvic lymph nodes: No adenopathy by size criteria. Bones: No aggressive osseous abnormality. Degenerative changes of the spine. Other: No significant ventral or inguinal hernia. IMPRESSION: Moderate to severe right hydroureteronephrosis. Multiple calcified bladder stones, some of which may be at the UVJ resulting in upstream obstruction. Nonobstructing 2 mm right interpolar nephrolithiasis. No left nephrolithiasis or hydronephrosis. Please see same day separately dictated CT chest for additional findings. Reviewed by: Jinny Magaña MD, PhD on 12/21/2023 8:14 PM PDT Approved by: Jinny Magaña MD, PhD on 12/21/2023 8:14 PM PDT Station ID: [id number]
[2023-12-21] MEDS: MAGNESIUM SULFATE 2 GRAM 2 GM/50 ML BAG IV ONE (20:28)
[2023-12-21] MEDS: POTASSIUM CHLORIDE 20 MEQ TABLET PO STA (20:28)
[2023-12-21 20:45] LABS: BILIRUBIN,URINE NEGATIVE (NEGATIVE); GLUCOSE, URINE (UA) 100 mg/dL (NEGATIVE); KETONES,URINE (UA) 15 mg/dL (NEGATIVE); LEUKOCYTE ESTERASE, URINE NEGATIVE (NEGATIVE); NITRITE,URINE NEGATIVE (NEGATIVE); OCCULT BLOOD,URINE NEGATIVE (NEGATIVE); PH,URINE 5.5 PH (5.0-7.5); PROTEIN,URINE 30 mg/dL (NEGATIVE); UROBILINOGEN,URINE 0.2 (NORMAL) E.U./dL (NORMAL)
[2023-12-21 20:51] LABS: CLARITY,URINE CLEAR (CLEAR)
[2023-12-21 21:04] LABS: BACTERIA,URINE Few /HPF (None Seen); RBC,URINE 0-5 /HPF (0-5); SQUAMOUS EPITHELIAL CELL,UR FEW Squamous (<= Few); WBC,URINE 0-3 /HPF (0-3)
[2023-12-21] MEDS ORDERED: SODIUM CHLORIDE FLUSH 0.9% 10 ML SYRINGE IVP PRN (22:41)
[2023-12-21] MEDS ORDERED: ONDANSETRON 4 MG/2 ML VIAL IVP PRN (22:41)
[2023-12-21] MEDS ORDERED: IBUPROFEN 400 MG TABLET PO PRN (22:41)
--- NOTE | 2023-12-21 23:22 | HISTORY & PHYSICAL EXAMINATION ---
Chief Complaint - Chief Complaint Chief Complaint: Home health RN called 911 as patient not looking well History of Present Illness - Admitted From Admitted From:: Home - History Obtained From Records Reviewed: Yes History obtained from: Patient and ER MD Exam Limitations: None - History of Present Illness HPI Comment/Other: As per ER "78-year-old male positive for COVID, has hypoxia secondary to COVID. Incidentally he did have a fall 10 days ago and suffered multiple rib fractures, is not having significant pain with this. Had atrial fibrillation with rapid ventricular response, this was easily controlled with 2 pushes of IV diltiazem 10 mg each. He was then maintained on oral Cardizem 60 mg p.o. Does not need a diltiazem drip. I consulted the hospitalist at approximately 5:15 PM. The hospitalist, Dr. Leigh, is concerned that the patient may develop RVR again and need a diltiazem gtt, therefore could need the icu later in the hospital stay. He also request that the general surgery service be consulted for the 10-day old rib fractures. I did speak with Dr. Orosco, he will consult on the patient, these are not acute rib fractures and these do not need acute management from the surgical service. The patient was maintained on oxygen in the emergency department, does not need antibiotics at this time. " Patient seen and examined via telemedicine, patient informed and consent tasha mojica, I informed that I am in [place] and this is telemedicine encounter and he is ok with the encounter. Patient is a retired [employer] member, lives with his , had home RN comes to help and take care of who has open wounds and found patient was not looking well, checked his pulse ok and hr and both abnormal he denies any other complaint, has been having cough for last 3-4 days and with every time he coughs his chest hurts. He was seen by surgeon prior to me in the ER. Also states just had physical done and was told everything was fine not aware of right sided hydro which I have discussed with Dr Begum from ER and he will be seen by Urology tomorrow. He is on nasal mask for oxygen stable hemodynamics heart rate improved compared to at time of arrival in ER. History - Past Medical History Cardiovascular: reports: Hypertension, High cholesterol, Atrial fibrillation Respiratory: Endocrine/Autoimmune: reports: Type 2 diabetes MRSA Hx?: No Meds/Allgy - Home Medications Home Medications: Ambulatory Orders Medication Instructions Recorded Confirmed Apixaban [Eliquis] 1 tab PO DAILY 07/08/22 12/21/23 Aspirin [[place] Aspirin] 1 tab PO DAILY 07/08/22 12/21/23 Felodipine [Felodipine ER] 1 tab PO DAILY 07/08/22 12/21/23 Gabapentin [Neurontin] 600 mg PO TID 07/08/22 12/21/23 Lisinopril [Zestril] 1 tab PO DAILY 07/08/22 12/21/23 Propranolol ER [Inderal LA] 1 tab PO DAILY 07/08/22 12/21/23 Simvastatin [Zocor] 1 tab PO HS 07/08/22 12/21/23 metFORMIN [Glucophage] 2 tab PO BID 07/08/22 12/21/23 - Allergies Allergies/Adverse Reactions: Allergies Allergy/AdvReac Type Severity Reaction Status Date / Time No Known Drug Allergies Allergy Verified 12/21/23 15:46 Review of Systems - Cardiovascular Cariovascular: reports: Irregular heart rate, Chest pain - Respiratory Respiratory: reports: Cough, Other Prior Level of Functionality: Independent with ADL Exam - Vital Signs Vital Signs: Vital Signs x48h Temp Pulse Resp BP Pulse Ox O2 Flow Rate 12/21/23 22:00 85 19 118/56 L 98 12/21/23 20:00 88 18 88 L 12/21/23 18:35 97 28 H 128/68 90 L 12/21/23 17:17 102 H 18 145/70 H 94 12/21/23 17:00 138 H 18 153/81 H 96 12/21/23 16:46 111 H 18 146/71 H 94 12/21/23 16:40 123 H 18 132/70 H 95 12/21/23 16:35 123 H 19 111/85 H 88 L 12/21/23 16:34 122 H 19 132/76 H 86 L 12/21/23 15:47 37 C 143 H 20 161/97 H 88 L - Physical Exam General Appearance: positive: Mild distress Eyes Bilateral: positive: Normal inspection, PERRL ENT: positive: Pharynx nml, No signs of dehydration Respiratory: positive: Rhonchi Cardiovascular: positive: Irregularly irregular Abdomen: positive: No organomegaly, Nml bowel sounds Back: positive: Nml inspection Skin: positive: Color nml, No rash Neurologic/Psychiatric: positive: Oriented x3, CN's nml (2-12) Sepsis Event Note (H) - Evaluation Current Stage of Sepsis: Ruled out Conclusion/Plan - Problem List (1) Hypoxia Conclusion/Plan: 78 yr male being admitted with impression of 1. Acute Hypoxic respiratory failure 2. Covid +ve 3. A fib with RVR 4. Rib fractures 5. Right sided hydronephrosis 6.Hypokalemia Recommendations Admit to telemetry with isolation supportive care for Covid Supplemental oxygen Empiric anitbiotic for concerns for super improsed bacterial PNA Cardizme for rate control Continue Eliquis Consider changing simvastin to atorvastatin Apprecciate surgery consult and will do pain control as recommended URology has been consulted and will se patient in am Discuss with pharmacy in am for available advanced treatment options available for Covid patients based on his clinical condition I have not ordered echo as patient had recent complete work up done PCP to be updated in am Patient give Tylenol #3 for cough relief and pain relief and restful sleep. Full code (3) Atrial fibrillation Qualifiers: Atrial fibrillation type: persistent (not longstanding) Qualified Code(s): I48.19 - Other persistent atrial fibrillation; I48.1 - Persistent atrial fibrillation (4) Ribs, multiple fractures Qualifiers: Encounter type: initial encounter Fracture type: closed Laterality: left Qualified Code(s): S22.42XA - Multiple fractures of ribs, left side, initial encounter for closed fracture - Lab Results Fish Bones: 12/21/23 15:53 12/21/23 15:53
[2023-12-21] MEDS: GABAPENTIN 300 MG CAPSULE PO SCH (23:40)
[2023-12-21] MEDS: ACETAMINOPHEN/CODEINE 300 MG/30 MG TABLET PO STA (23:40)
--- NOTE | 2023-12-22 00:01 | ED Physician Documentation ---
ED Addendum - Addendum Addendum: 12/22/23 00:00 Patient received a signout from outgoing physician, please see their do cumentation for further detail. Care discussed with the [facility] hospital service who requested CT abdomen pelvis as patient does have right hydronephrosis. Does have what appears to be some punctate calcifications possibly causing obstruction to the right ureter. Discussed with Dr. Mclaughlin, urology who is available to see the patient tomorrow. Patient admitted under the hospitalist service for further evaluation and treatment.
[2023-12-22] MEDS: SODIUM CHLORIDE FLUSH 0.9% 10 ML SYRINGE IVP SCH (01:26)
[2023-12-22] MEDS: diltiaZEM 30 MG TABLET PO SCH ×2 (01:26→10:18)
[2023-12-22] MEDS ORDERED: PROPRANOLOL ER 60 MG CAPSULE PO SCH (09:00)
[2023-12-22] MEDS ORDERED: APIXABAN 5 MG TABLET PO SCH (09:00)
--- NOTE | 2023-12-22 09:41 | CONSULTATION NOTE ---
Referring Provider Name of Referring Provider:: ER Consult Date: 12/22/23 Chief Complaint - Chief Complaint Chief Complaint: right hydronephrosis History of Present Illness - Admitted From Admitted From:: ER - History Obtained From Records Reviewed: ER History obtained from: Patient and ER Exam Limitations: none - History of Present Illness HPI Comment/Other: Agustín is a 78-year-old male with no significant urological history who presented to the hospital with a combination of chest pain, mild shortness of breath in the setting of recent rib fractures on the right from a fall. During the workup of this he was incidentally found to have right-sided hydronephrosis. Completion CT Noncon showed hydroureteronephrosis to the level of the bladder. No definitive ureteral stone was seen by myself or by radiology. However he does have a cluster of small stones in his bladder which is enlarged. He states he has no urinary complaints sometimes he has frequent urination. He is on no medications for this. He has had PSA testing in the past the most recent that I saw was from 2018 which was under 2. He denies hematuria or dysuria. He states he had a UTI a year ago which was treated easily with antibiotics. He denies any flank pain. His renal function is normal with creatinine 0.9 History - Past Medical History Cardiovascular: reports: Hypertension, High cholesterol, Atrial fibrillation Respiratory: reports: None Neuro: reports: None Endocrine/Autoimmune: reports: Type 2 diabetes GI: reports: None : reports: None Psych: reports: None Musculoskeletal: reports: None Derm: reports: None MRSA Hx?: No Meds/Allgy - Home Medications Home Medications: Ambulatory Orders Medication Instructions Recorded Confirmed Apixaban [Eliquis] 1 tab PO DAILY 07/08/22 12/21/23 Aspirin [[place] Aspirin] 1 tab PO DAILY 07/08/22 12/21/23 Felodipine [Felodipine ER] 1 tab PO DAILY 07/08/22 12/21/23 Gabapentin [Neurontin] 600 mg PO TID 07/08/22 12/21/23 Lisinopril [Zestril] 1 tab PO DAILY 07/08/22 12/21/23 Propranolol ER [Inderal LA] 1 tab PO DAILY 07/08/22 12/21/23 Simvastatin [Zocor] 1 tab PO HS 07/08/22 12/21/23 metFORMIN [Glucophage] 2 tab PO BID 07/08/22 12/21/23 - Allergies Allergies/Adverse Reactions: Allergies Allergy/AdvReac Type Severity Reaction Status Date / Time No Known Drug Allergies Allergy Verified 12/21/23 15:46 Exam - Vital Signs Vital Signs: Vital Signs x48h Temp Pulse Resp BP Pulse Ox O2 Flow Rate 12/22/23 08:09 36.4 C L 111 H 20 138/90 H 94 12 12/22/23 05:00 36.3 C L 87 19 117/62 95 12 - Physical Exam General Appearance: positive: No acute distress (lying in bed) Abdomen: positive: Other (no CVAT) Conclusion and Plan - Lab Results Laboratory Results 12/21/23 20:37: Urine Color YELLOW, Urine Clarity CLEAR, Urine pH 5.5, Ur Specific [place] 1.020, Urine Protein 30 H, Urine Glucose (UA) 100 H, Urine Ketones 15 H, Urine Occult Blood NEGATIVE, Urine Nitrite NEGATIVE, Urine Bilirubin NEGATIVE, Urine Urobilinogen 0.2 (NORMAL), Ur Leukocyte Esterase NEGATIVE, Urine RBC 0-5, Urine WBC 0-3, Ur Squamous Epith Cells FEW Squamous, Urine Bacteria Few, Ur Microscopic Review INDICATED, Urine Culture Comments NOT INDICATED 12/21/23 15:55: Nasal Adenovirus (PCR) NOT DETECTED, Nasal B. parapertussis DNA (PCR) NOT DETECTED, Nasal Coronavir 229E PCR NOT DETECTED, Nasal Coronavir HKU1 PCR NOT DETECTED, Nasal Coronavir NL63 PCR NOT DETECTED, Nasal Coronavir OC43 PCR NOT DETECTED, Nasal Enterovir/Rhinovir PCR NOT DETECTED, Nasal Influenza B PCR NOT DETECTED, Nasal Influenza A PCR NOT DETECTED, Nasal Parainfluen 1 PCR NOT DETECTED, Nasal Parainfluen 2 PCR NOT DETECTED, Nasal Parainfluen 3 PCR NOT DETECTED, Nasal Parainfluen 4 PCR NOT DETECTED, Nasal RSV (PCR) NOT DETECTED, Nasal B.pertussis DNA PCR NOT DETECTED, Nasal C.pneumoniae (PCR) NOT DETECTED, Demian Human Metapneumo PCR NOT DETECTED, Nasal M.pneumoniae (PCR) NOT DETECTED, Nasal SARS-CoV-2 (PCR) DETECTED A 12/21/23 15:53: B-Natriuretic Peptide 274 H 12/21/23 15:53: Sodium 135, Potassium 3.3 L, Chloride 100 L, Carbon Dioxide 23, Anion Gap 12.0, BUN 24 H, Creatinine 0.9, Estimated GFR (MDRD) 82 L, Glucose 202 H, Calcium 9.1, Total Bilirubin 0.5, AST 17, ALT 16, Alkaline Phosphatase 73, Total Protein 6.5, Albumin 3.2, Globulin 3.3, Albumin/Globulin Ratio 1.0, Lipase 22 /15/ 15:53: WBC 10.3, RBC 4.20 L, Hgb 13.9 L, Hct 42.0, MCV 100.0 H, MCH 33.1 H, MCHC 33.1, RDW 12.4, Plt Count 266, MPV 11.8 H, Neut # (Auto) 7.7 H, Lymph # (Auto) 1.8, Bartholomew # (Auto) 0.5, Eos # (Auto) 0.2, Baso # (Auto) 0.0, Absolute Nucleated RBC 0.00, Nucleated RBC % 0.0 - Diagnostic Imaging Results Diagnostic Imaging Results: positive: Read independently - Diagnosis Diagnosis: Right hydroureteronephrosis. Bladder outlet obstruction. Bladder stones - Consultation Note Consultation Note: 78-year-old male admitted with a combination of COVID, recent rib fractures, chest pain. Incidental right-sided hydroureteronephrosis with no definitive obstruction along with significant evidence of bladder obstruction and many small bladder stones - Plan Plan: No acute intervention. I suspect his hydroureteronephrosis on the right is chronic but should be evaluated the future to assure resolution. I recommend starting tamsulosin 0.4 mg at night. Side effects reviewed and the prescription has been ordered. He is interested in this. He can always stop the tamsulosin if he has side effect such as orthostatic hypotension I will have my office reach out to him to follow-up about a month after discharge. From perspective it appears that he is doing quite well. I suspect he can likely be discharged even today. He has no shortness of breath or other issues. I would recommend an incentive spirometer to measure his tidal volumes. I will of course defer to the hospitalist team for this decision
[2023-12-22] MEDS: APIXABAN 5 MG TABLET PO SCH (10:17)
[2023-12-22] MEDS: ASPIRIN CHEW 81 MG TABLET PO SCH (10:18)
[2023-12-22] MEDS: lisinopriL 20 MG TABLET PO SCH (10:18)
[2023-12-22] MEDS: METOPROLOL SUCCINATE 50 MG TABLET PO SCH (10:39)
--- NOTE | 2023-12-22 11:03 | PROVIDER PROGRESS NOTE ---
Assessment/Plan - Problem List (1) Acute hypoxemic respiratory failure due to COVID-19 Assessment/Plan: Patient presents with approximately 10 days of symptoms to include cough, SOB, malaise. States also with cough and similar symptoms though no diagnosis of COVID. Denies vaccination. Continue supplemental O2, iv decadron, supportive care. Rib fractures L 8-10 -Appreciate help from surgery -Continue pain control to include acetaminophen, toradol, [place] prn -iv Dilaudid prn -PT and OT consult Chronic AF -Patient states does not take any BB, CCB, but does take DOAC -Will start Toprol XL, continue telemetry, continue DOAC -F/u with outpatient cardiology R hydroureteronephrosis -Appreciate input from Urology, no surgical intervention at this time. -To start Flomax, monitor for orthostatic blood pressure changes (2) Atrial fibrillation Qualifiers: Atrial fibrillation type: persistent (not longstanding) Qualified Code(s): I48.19 - Other persistent atrial fibrillation; I48.1 - Persistent atrial fibrillation (3) Ribs, multiple fractures Qualifiers: Encounter type: initial encounter Fracture type: closed Laterality: left Qualified Code(s): S22.42XA - Multiple fractures of ribs, left side, initial encounter for closed fracture - Current Meds Current Meds: Current Medications Generic Name Dose Route Start Last Admin Trade Name Freq PRN Reason Stop Dose Admin Apixaban 5 mg 12/22/23 09:00 12/22/23 10:17 Apixaban 5 Mg Tablet PO 5 mg BID TORSTEN Administration Aspirin 81 mg 12/22/23 09:00 12/22/23 10:18 Aspirin Chew 81 Mg Tablet PO 81 mg DAILY TORSTEN Administration Diltiazem HCl 30 mg 12/22/23 09:00 12/22/23 10:18 Diltiazem 30 Mg Tablet PO 30 mg Q8H TORSTEN Administration Gabapentin 600 mg 12/21/23 23:00 12/22/23 06:10 Gabapentin 300 Mg Capsule PO 600 mg TID TORSTEN Administration Lisinopril 20 mg 12/22/23 09:00 12/22/23 10:18 Lisinopril 20 Mg Tablet PO 20 mg DAILY TORSTEN Administration Metoprolol Succinate 100 mg 12/22/23 10:00 12/22/23 10:39 Metoprolol Succinate 50 Mg Tablet PO 100 mg DAILY TORSTEN Administration Sodium Chloride 10 ml 12/22/23 01:00 12/22/23 10:20 Sodium Chloride Flush 0.9% 10 Ml Syringe IVP 10 ml 0100,0900,1700 TORSTEN Administration - Lab Result Fish Bone Diagrams: 12/21/23 15:53 12/21/23 15:53 - Additional Planning My Orders: My Active Orders 12/22/23 10:00 Metoprolol Succinate [Toprol Xl] 100 mg PO DAILY 12/22/23 11:00 dexAMETHasone [Decadron] 6 mg IVP DAILY Subjective - Subjective Patient Reports: Cough Objective Vital Signs: Vital Signs - 24 hr 12/21/23 12/21/23 12/21/23 15:47 16:34 16:35 Temperature 37 C Heart Rate 143 H 122 H 123 H Heart Rate [ Brachial] Respiratory 20 19 19 Rate Blood Pressure 161/97 H 132/76 H 111/85 H Blood Pressure [Right Brachial artery] O2 Saturation 88 L 86 L 88 L If not protocol 5 4 : Oxygen Flow, liters/minute 12/21/23 12/21/23 12/21/23 16:40 16:46 17:00 Temperature Heart Rate 123 H 111 H 138 H Heart Rate [ Brachial] Respiratory 18 18 18 Rate Blood Pressure 132/70 H 146/71 H 153/81 H Blood Pressure [Right Brachial artery] O2 Saturation 95 94 96 If not protocol 5 5 : Oxygen Flow, liters/minute 12/21/23 12/21/23 12/21/23 17:17 18:35 20:00 Temperature Heart Rate 102 H 97 88 Heart Rate [ Brachial] Respiratory 18 28 H 18 Rate Blood Pressure 145/70 H 128/68 Blood Pressure [Right Brachial artery] O2 Saturation 94 90 L 88 L If not protocol 5 4 5 : Oxygen Flow, liters/minute 12/21/23 12/21/23 12/21/23 22:00 23:39 23:40 Temperature Heart Rate 85 110 H Heart Rate [ Brachial] Respiratory 19 17 Rate Blood Pressure 118/56 L Blood Pressure [Right Brachial artery] O2 Saturation 98 93 86 L If not protocol 12 6 6 : Oxygen Flow, liters/minute 12/21/23 12/22/23 12/22/23 23:46 00:10 00:36 Temperature 36.7 C Heart Rate Heart Rate [ 89 Brachial] Respiratory 20 Rate Blood Pressure Blood Pressure 129/78 [Right Brachial artery] O2 Saturation 95 94 If not protocol 12 12 12 : Oxygen Flow, liters/minute 12/22/23 12/22/23 12/22/23 01:26 05:00 08:09 Temperature 36.3 C L 36.4 C L Heart Rate Heart Rate [ 87 111 H Brachial] Respiratory 19 20 Rate Blood Pressure 129/74 Blood Pressure 117/62 138/90 H [Right Brachial artery] O2 Saturation 95 94 If not protocol 12 12 : Oxygen Flow, liters/minute 12/22/23 10:18 Temperature Heart Rate Heart Rate [ Brachial] Respiratory Rate Blood Pressure 124/72 Blood Pressure [Right Brachial artery] O2 Saturation If not protocol : Oxygen Flow, liters/minute Oxygen O2 Source Non-rebreather mask Oxygen Flow Rate 4 I&O (Last 24 Hrs): Intake and Output Totals x24h 12/20/23 12/21/23 12/22/23 23:59 23:59 23:59 Intake Total 50.000 860 Output Total 550 Balance 50.000 310 General: Alert, Oriented x3, Cooperative HEENT: Atraumatic Neck: Supple Lymphatic: no adenopathy Neuro: Alert Cardiovascular: Other (irregular) Respiratory: Chest non-tender, No respiratory distress, Breath sounds nml Abdomen: Normal bowel sounds, Soft Extremities: No edema, Normal pulses - Results Results: Laboratory Results WBC 10.3 x10^3/uL (4.8-10.8) 12/21/23 15:53 RBC 4.20 10^6/uL (4.70-6.10) L 12/21/23 15:53 Hgb 13.9 g/dL (14.0-18.0) L 12/21/23 15:53 Hct 42.0 % (42.0-52.0) 12/21/23 15:53 MCV 100.0 fL (80.0-94.0) H 12/21/23 15:53 MCH 33.1 pg (27.0-31.0) H 12/21/23 15:53 MCHC 33.1 g/dL (32.0-36.0) 12/21/23 15:53 RDW 12.4 % (12.0-15.0) 12/21/23 15:53 Plt Count 266 10^3/uL (130-450) 12/21/23 15:53 MPV 11.8 fL (7.4-11.4) H 12/21/23 15:53 Neut # (Auto) 7.7 10^3/uL (1.5-6.6) H 12/21/23 15:53 Lymph # (Auto) 1.8 10^3/uL (1.5-3.5) 12/21/23 15:53 [place] # (Auto) 0.5 10^3/uL (0.0-1.0) 12/21/23 15:53 Eos # (Auto) 0.2 10^3/uL (0.0-0.7) 12/21/23 15:53 Baso # (Auto) 0.0 10^3/uL (0.0-0.1) 12/21/23 15:53 Absolute Nucleated RBC 0.00 x10^3/uL 12/21/23 15:53 Nucleated RBC % 0.0 /100WBC 12/21/23 15:53 Sodium 135 mmol/L (135-145) 12/21/23 15:53 Potassium 3.3 mmol/L (3.5-4.5) L 12/21/23 15:53 Chloride 100 mmol/L (101-111) L 12/21/23 15:53 Carbon Dioxide 23 mmol/L (21-32) 12/21/23 15:53 Anion Gap 12.0 (6-13) 12/21/23 15:53 BUN 24 mg/dL (6-20) H 12/21/23 15:53 Creatinine 0.9 mg/dL (0.6-1.3) 12/21/23 15:53 Estimated GFR (MDRD) 82 (>89) L 12/21/23 15:53 Glucose 202 mg/dL (74-104) H 12/21/23 15:53 Calcium 9.1 mg/dL (8.5-10.3) 12/21/23 15:53 Total Bilirubin 0.5 mg/dL (0.2-1.0) 12/21/23 15:53 AST 17 IU/L (10-42) 12/21/23 15:53 ALT 16 IU/L (10-60) 12/21/23 15:53 Alkaline Phosphatase 73 IU/L (42-121) 12/21/23 15:53 B-Natriuretic Peptide 274 pg/mL (5-100) H 12/21/23 15:53 Total Protein 6.5 g/dL (6.4-8.9) 12/21/23 15:53 Albumin 3.2 g/dL (3.2-5.5) 12/21/23 15:53 Globulin 3.3 g/dL (2.1-4.2) 12/21/23 15:53 Albumin/Globulin Ratio 1.0 (1.0-2.2) 12/21/23 15:53 Lipase 22 U/L (11-82) 12/21/23 15:53 Vitamin B12 447 pg/mL (180-914) 12/22/23 09:43 Urine Color YELLOW 12/21/23 20:37 Urine Clarity CLEAR (CLEAR) 12/21/23 20:37 Urine pH 5.5 PH (5.0-7.5) 12/21/23 20:37 Ur Specific [place] 1.020 (1.002-1.030) 12/21/23 20:37 Urine Protein 30 mg/dL (NEGATIVE) H 12/21/23 20:37 Urine Glucose (UA) 100 mg/dL (NEGATIVE) H 12/21/23 20:37 Urine Ketones 15 mg/dL (NEGATIVE) H 12/21/23 20:37 Urine Occult Blood NEGATIVE (NEGATIVE) 12/21/23 20:37 Urine Nitrite NEGATIVE (NEGATIVE) 12/21/23 20:37 Urine Bilirubin NEGATIVE (NEGATIVE) 12/21/23 20:37 Urine Urobilinogen 0.2 (NORMAL) E.U./dL (NORMAL) 12/21/23 20:37 Ur Leukocyte Esterase NEGATIVE (NEGATIVE) 12/21/23 20:37 Urine RBC 0-5 /HPF (0-5) 12/21/23 20:37 Urine WBC 0-3 /HPF (0-3) 12/21/23 20:37 Ur Squamous Epith Cells FEW Squamous (<= Few) 12/21/23 20:37 Urine Bacteria Few /HPF (None Seen) 12/21/23 20:37 Ur Microscopic Review INDICATED 12/21/23 20:37 Urine Culture Comments NOT INDICATED 12/21/23 20:37 Nasal Adenovirus (PCR) NOT DETECTED 12/21/23 15:55 Nasal B. parapertussis DNA (PCR) NOT DETECTED 12/21/23 15:55 Nasal Coronavir 229E PCR NOT DETECTED 12/21/23 15:55 Nasal Coronavir HKU1 PCR NOT DETECTED 12/21/23 15:55 Nasal Coronavir NL63 PCR NOT DETECTED 12/21/23 15:55 Nasal Coronavir OC43 PCR NOT DETECTED 12/21/23 15:55 Nasal Enterovir/Rhinovir PCR NOT DETECTED 12/21/23 15:55 Nasal Influenza B PCR NOT DETECTED 12/21/23 15:55 Nasal Influenza A PCR NOT DETECTED 12/21/23 15:55 Nasal Parainfluen 1 PCR NOT DETECTED 12/21/23 15:55 Nasal Parainfluen 2 PCR NOT DETECTED 12/21/23 15:55 Nasal Parainfluen 3 PCR NOT DETECTED 12/21/23 15:55 Nasal Parainfluen 4 PCR NOT DETECTED 12/21/23 15:55 Nasal RSV (PCR) NOT DETECTED 12/21/23 15:55 Nasal B.pertussis DNA PCR NOT DETECTED 12/21/23 15:55 Nasal C.pneumoniae (PCR) NOT DETECTED 12/21/23 15:55 Demian Human Metapneumo PCR NOT DETECTED 12/21/23 15:55 Nasal M.pneumoniae (PCR) NOT DETECTED 12/21/23 15:55 Nasal SARS-CoV-2 (PCR) DETECTED A 12/21/23 15:55 - Procedures Procedures: Procedures EXCISION OF SIGMOID COLON, ENDO (07/09/22) Sepsis Event Note (H) - Evaluation Current Stage of Sepsis: Ruled out ABX Reporting Has patient been on IV antibiotics over the past 48 hours?: No
[2023-12-22] MEDS: DEXAMETHASONE 4 MG/ML VIAL IVP SCH (11:55)
[2023-12-22] MEDS: BENZOCAINE/MENTHOL LOZENGE MM PRN (16:17)
--- NOTE | 2023-12-22 16:38 | PHARMACY PROGRESS NOTE ---
- Best Possible Medication History Admit Date and Time: 12/21/23 4322 Processed by: Pharmacy Medications reviewed in ED?: No Medication History completed: Yes Patient Interview: Pt unable to participate Secondary Source(s): Spouse/Significant other (Medication Reconciliation completed by [employer]), Insurance records As the person ultimately responsible for medication therapy, providers are able to order a medication from an existing home medication list in [facility] via the "Reconcile Routine" prior to Confirmation of that medication by physician support coordinator. Such practice is discouraged except when the physician, in their clinical judgment, deems that a medical need exists for a medication without regard to previous use.
[2023-12-22] MEDS: INSULIN LISPRO 300 UNIT/3 ML PEN SUBQ SCH ×3 (18:27→21:21)
[2023-12-22] MEDS: guaiFENesin 600 MG TABLET PO SCH (21:19)
[2023-12-22] MEDS: INSULIN GLARGINE-YFGN 300 UNIT/3 ML PEN SUBQ SCH (21:21)
[2023-12-22] MEDS: TAMSULOSIN 0.4 MG CAPSULE PO SCH (21:25)
[2023-12-23 05:48] LABS: BASOPHILS % (AUTO) 0.1 %; HCT - HEMATOCRIT 35.4 % (42.0-52.0); HGB - HEMOGLOBIN 11.5 g/dL (14.0-18.0); LYMPHOCYTES # (AUTO) 1.5 10^3/uL (1.5-3.5); LYMPHOCYTES % (AUTO) 12.2 %; MEAN CORPUSCULAR HEMOGLOBIN 33.3 pg (27.0-31.0); MEAN CORPUSCULAR HGB CONC 32.5 g/dL (32.0-36.0); MEAN CORPUSCULAR VOLUME 102.6 fL (80.0-94.0); MEAN PLATELET VOLUME 11.9 fL (7.4-11.4); MONOCYTES # (AUTO) 0.5 10^3/uL (0.0-1.0); MONOCYTES % (AUTO) 4.3 %; NEUTROPHILS # (AUTO) 10.2 10^3/uL (1.5-6.6); NEUTROPHILS % (AUTO) 82.9 %; PLT - PLATELET COUNT 311 10^3/uL (130-450); RED BLOOD COUNT 3.45 10^6/uL (4.70-6.10); RED CELL DISTRIBUTION WIDTH 12.4 % (12.0-15.0); WHITE BLOOD COUNT 12.3 x10^3/uL (4.8-10.8)
[2023-12-23 06:03] LABS: CALCIUM 8.9 mg/dL (8.5-10.3); CREATININE 1.4 mg/dL (0.6-1.3); POTASSIUM 4.8 mmol/L (3.5-4.5)
--- NOTE | 2023-12-23 06:40 | PROVIDER PROGRESS NOTE ---
Progress Note General Surgery Progress Note Agustín has very little rib pain with cough and deep breathing. His inspiratory effort is excellent. He is using very little analgesics. The General Surgery Service will sign off of case today. Please do not hesitate to contact us if you have further questions or concerns or if you wish to have us continue to follow this patient with you. Rishi Orosco MD, [facility] General Surgery Service [phone]
--- NOTE | 2023-12-23 08:58 | PROVIDER PROGRESS NOTE ---
Assessment/Plan - Problem List (1) Acute hypoxemic respiratory failure due to COVID-19 Assessment/Plan: (1) Acute hypoxemic respiratory failure due to COVID-19 Assessment/Plan: Patient presents with approximately 10 days of symptoms to include cough, SOB, malaise. States also with cough and similar symptoms though no diagnosis of COVID. Denies vaccination. Continue supplemental O2, iv decadron, supportive care. Rib fractures L 8-10 -Appreciate help from surgery -Continue pain control to include acetaminophen, toradol, [place] prn -iv Dilaudid prn -PT and OT consult Chronic AF -Patient states does not take any BB, CCB, but does take DOAC -Will start Toprol XL, continue telemetry, continue DOAC -F/u with outpatient cardiology R hydroureteronephrosis -Appreciate input from Urology, no surgical intervention at this time. -To start Flomax, monitor for orthostatic blood pressure changes LUCILA -Creatinine elevated to 1.4, will hold ACEi T2DM -ADA diet, SSI (2) Atrial fibrillation Qualifiers: Atrial fibrillation type: persistent (not longstanding) Qualified Code(s): I48.19 - Other persistent atrial fibrillation; I48.1 - Persistent atrial fibrillation (3) Ribs, multiple fractures Qualifiers: Encounter type: initial encounter Fracture type: closed Laterality: left Qualified Code(s): S22.42XA - Multiple fractures of ribs, left side, initial encounter for closed fracture (2) Atrial fibrillation Qualifiers: Atrial fibrillation type: persistent (not longstanding) Qualified Code(s): I48.19 - Other persistent atrial fibrillation; I48.1 - Persistent atrial fibrillation (3) Ribs, multiple fractures Qualifiers: Encounter type: initial encounter Fracture type: closed Laterality: left Qualified Code(s): S22.42XA - Multiple fractures of ribs, left side, initial encounter for closed fracture - Current Meds Current Meds: Current Medications Generic Name Dose Route Start Last Admin Trade Name Freq PRN Reason Stop Dose Admin Apixaban 5 mg 12/22/23 09:00 12/22/23 21:20 Apixaban 5 Mg Tablet PO 5 mg BID TORSTEN Administration Aspirin 81 mg 12/22/23 09:00 12/22/23 10:18 Aspirin Chew 81 Mg Tablet PO 81 mg DAILY TORSTEN Administration Dexamethasone 6 mg 12/22/23 11:00 12/22/23 11:55 Dexamethasone 4 Mg/Ml Vial IVP 6 mg DAILY TORSTEN Administration Diltiazem HCl 30 mg 12/22/23 09:00 12/23/23 00:48 Diltiazem 30 Mg Tablet PO 30 mg Q8H TORSTEN Administration Gabapentin 600 mg 12/21/23 23:00 12/23/23 06:26 Gabapentin 300 Mg Capsule PO 600 mg TID TORSTEN Administration Guaifenesin 600 mg 12/22/23 21:00 12/22/23 21:19 Guaifenesin 600 Mg Tablet PO 600 mg BID TORSTEN Administration Insulin Glargine-yfgn 10 unit 12/22/23 21:00 12/22/23 21:21 Insulin Glargine-Yfgn 300 Unit/3 Ml Pen SUBQ 10 unit QPM TORSTEN Administration Insulin Human Lispro 5 unit 12/22/23 19:00 12/22/23 18:28 Insulin Lispro 300 Unit/3 Ml Pen SUBQ 5 unit TIDWM TORSTEN Administration Protocol Metoprolol Succinate 100 mg 12/22/23 10:00 12/22/23 10:39 Metoprolol Succinate 50 Mg Tablet PO 100 mg DAILY TORSTEN Administration Sodium Chloride 10 ml 12/22/23 01:00 12/23/23 00:49 Sodium Chloride Flush 0.9% 10 Ml Syringe IVP 10 ml 0100,0900,1700 TORSTEN Administration Tamsulosin HCl 0.4 mg 12/22/23 21:00 12/22/23 21:25 Tamsulosin 0.4 Mg Capsule PO 0.4 mg DAILY TORSTEN Administration Throat Lozenges 1 lozenge 12/22/23 16:02 12/22/23 16:17 Benzocaine/Menthol Lozenge MM 1 lozenge Q2HR PRN Administration Throat pain - Lab Result Fish Bone Diagrams: 12/23/23 05:39 12/23/23 05:39 - Additional Planning My Orders: My Active Orders 12/22/23 10:00 Metoprolol Succinate [Toprol Xl] 100 mg PO DAILY 12/22/23 11:00 dexAMETHasone [Decadron] 6 mg IVP DAILY 12/22/23 18:21 Blood Glucose Checks - Eating [RC] 0800,1200,1700,2100 Initiate Hypoglycemia Protocol [RC] .protocol 12/22/23 19:00 Insulin Lispro [Humalog Kwikpen U-100] 5 unit SUBQ TIDWM Objective Vital Signs: Vital Signs - 24 hr 12/22/23 12/22/23 12/22/23 10:18 12:11 16:17 Temperature 36.2 C L Heart Rate [ 88 Brachial] Respiratory 18 Rate Blood Pressure 124/72 126/72 Blood Pressure 110/63 [Right Brachial artery] O2 Saturation 97 If not protocol 12 : Oxygen Flow, liters/minute 12/22/23 12/22/23 12/22/23 16:23 20:05 22:24 Temperature 37.0 C 36.9 C Heart Rate [ 104 H 78 Brachial] Respiratory 16 20 Rate Blood Pressure Blood Pressure 126/72 134/62 H [Right Brachial artery] O2 Saturation 93 92 If not protocol 12 12 6 : Oxygen Flow, liters/minute 12/23/23 12/23/23 12/23/23 00:48 00:59 05:05 Temperature 36.7 C 36.8 C Heart Rate [ 82 70 Brachial] Respiratory 18 16 Rate Blood Pressure 103/53 L Blood Pressure 103/56 L 111/57 L [Right Brachial artery] O2 Saturation 96 92 If not protocol 6 6 : Oxygen Flow, liters/minute 12/23/23 12/23/23 12/23/23 06:30 08:04 08:15 Temperature 36.6 C Heart Rate [ 80 Brachial] Respiratory 18 Rate Blood Pressure Blood Pressure 96/54 L [Right Brachial artery] O2 Saturation 94 95 If not protocol 6 6 6 : Oxygen Flow, liters/minute Oxygen O2 Source Nasal cannula Oxygen Flow Rate 4 I&O (Last 24 Hrs): Intake and Output Totals x24h 12/21/23 12/22/23 12/23/23 23:59 23:59 23:59 Intake Total 50.000 2570 240 Output Total 1350 200 Balance 50.000 1220 40 - Results Results: Laboratory Results WBC 12.3 x10^3/uL (4.8-10.8) H 12/23/23 05:39 RBC 3.45 10^6/uL (4.70-6.10) L 12/23/23 05:39 Hgb 11.5 g/dL (14.0-18.0) L 12/23/23 05:39 Hct 35.4 % (42.0-52.0) L 12/23/23 05:39 MCV 102.6 fL (80.0-94.0) H 12/23/23 05:39 MCH 33.3 pg (27.0-31.0) H 12/23/23 05:39 MCHC 32.5 g/dL (32.0-36.0) 12/23/23 05:39 RDW 12.4 % (12.0-15.0) 12/23/23 05:39 Plt Count 311 10^3/uL (130-450) 12/23/23 05:39 MPV 11.9 fL (7.4-11.4) H 12/23/23 05:39 Neut # (Auto) 10.2 10^3/uL (1.5-6.6) H 12/23/23 05:39 Lymph # (Auto) 1.5 10^3/uL (1.5-3.5) 12/23/23 05:39 [place] # (Auto) 0.5 10^3/uL (0.0-1.0) 12/23/23 05:39 Eos # (Auto) 0.0 10^3/uL (0.0-0.7) 12/23/23 05:39 Baso # (Auto) 0.0 10^3/uL (0.0-0.1) 12/23/23 05:39 Absolute Nucleated RBC 0.00 x10^3/uL 12/23/23 05:39 Nucleated RBC % 0.0 /100WBC 12/23/23 05:39 Sodium 130 mmol/L (135-145) L 12/23/23 05:39 Potassium 4.8 mmol/L (3.5-4.5) H 12/23/23 05:39 Chloride 99 mmol/L (101-111) L 12/23/23 05:39 Carbon Dioxide 23 mmol/L (21-32) 12/23/23 05:39 Anion Gap 8.0 (6-13) 12/23/23 05:39 BUN 44 mg/dL (6-20) H 12/23/23 05:39 Creatinine 1.4 mg/dL (0.6-1.3) H 12/23/23 05:39 Estimated GFR (MDRD) 49 (>89) L 12/23/23 05:39 Glucose 475 mg/dL (74-104) H 12/23/23 05:39 POC Whole Bld Glucose 404 mg/dL (70 - 100) H 12/23/23 08:07 Calcium 8.9 mg/dL (8.5-10.3) 12/23/23 05:39 Total Bilirubin 0.5 mg/dL (0.2-1.0) 12/21/23 15:53 AST 17 IU/L (10-42) 12/21/23 15:53 ALT 16 IU/L (10-60) 12/21/23 15:53 Alkaline Phosphatase 73 IU/L (42-121) 12/21/23 15:53 B-Natriuretic Peptide 274 pg/mL (5-100) H 12/21/23 15:53 Total Protein 6.5 g/dL (6.4-8.9) 12/21/23 15:53 Albumin 3.2 g/dL (3.2-5.5) 12/21/23 15:53 Globulin 3.3 g/dL (2.1-4.2) 12/21/23 15:53 Albumin/Globulin Ratio 1.0 (1.0-2.2) 12/21/23 15:53 Lipase 22 U/L (11-82) 12/21/23 15:53 Vitamin B12 447 pg/mL (180-914) 12/22/23 09:43 Urine Color YELLOW 12/21/23 20:37 Urine Clarity CLEAR (CLEAR) 12/21/23 20:37 Urine pH 5.5 PH (5.0-7.5) 12/21/23 20:37 Ur Specific [place] 1.020 (1.002-1.030) 12/21/23 20:37 Urine Protein 30 mg/dL (NEGATIVE) H 12/21/23 20:37 Urine Glucose (UA) 100 mg/dL (NEGATIVE) H 12/21/23 20:37 Urine Ketones 15 mg/dL (NEGATIVE) H 12/21/23 20:37 Urine Occult Blood NEGATIVE (NEGATIVE) 12/21/23 20:37 Urine Nitrite NEGATIVE (NEGATIVE) 12/21/23 20:37 Urine Bilirubin NEGATIVE (NEGATIVE) 12/21/23 20:37 Urine Urobilinogen 0.2 (NORMAL) E.U./dL (NORMAL) 12/21/23 20:37 Ur Leukocyte Esterase NEGATIVE (NEGATIVE) 12/21/23 20:37 Urine RBC 0-5 /HPF (0-5) 12/21/23 20:37 Urine WBC 0-3 /HPF (0-3) 12/21/23 20:37 Ur Squamous Epith Cells FEW Squamous (<= Few) 12/21/23 20:37 Urine Bacteria Few /HPF (None Seen) 12/21/23 20:37 Ur Microscopic Review INDICATED 12/21/23 20:37 Urine Culture Comments NOT INDICATED 12/21/23 20:37 Nasal Adenovirus (PCR) NOT DETECTED 12/21/23 15:55 Nasal B. parapertussis DNA (PCR) NOT DETECTED 12/21/23 15:55 Nasal Coronavir 229E PCR NOT DETECTED 12/21/23 15:55 Nasal Coronavir HKU1 PCR NOT DETECTED 12/21/23 15:55 Nasal Coronavir NL63 PCR NOT DETECTED 12/21/23 15:55 Nasal Coronavir OC43 PCR NOT DETECTED 12/21/23 15:55 Nasal Enterovir/Rhinovir PCR NOT DETECTED 12/21/23 15:55 Nasal Influenza B PCR NOT DETECTED 12/21/23 15:55 Nasal Influenza A PCR NOT DETECTED 12/21/23 15:55 Nasal Parainfluen 1 PCR NOT DETECTED 12/21/23 15:55 Nasal Parainfluen 2 PCR NOT DETECTED 12/21/23 15:55 Nasal Parainfluen 3 PCR NOT DETECTED 12/21/23 15:55 Nasal Parainfluen 4 PCR NOT DETECTED 12/21/23 15:55 Nasal RSV (PCR) NOT DETECTED 12/21/23 15:55 Nasal B.pertussis DNA PCR NOT DETECTED 12/21/23 15:55 Nasal C.pneumoniae (PCR) NOT DETECTED 12/21/23 15:55 [place] Human Metapneumo PCR NOT DETECTED 12/21/23 15:55 Nasal M.pneumoniae (PCR) NOT DETECTED 12/21/23 15:55 Nasal SARS-CoV-2 (PCR) DETECTED A 12/21/23 15:55 - Procedures Procedures: Procedures EXCISION OF SIGMOID COLON, ENDO (07/09/22) Sepsis Event Note (H) - Evaluation Current Stage of Sepsis: Ruled out ABX Reporting Has patient been on IV antibiotics over the past 48 hours?: No
[2023-12-23] MEDS: INSULIN LISPRO 300 UNIT/3 ML PEN SUBQ SCH (08:59)
[2023-12-23] MEDS: INSULIN LISPRO 300 UNIT/3 ML PEN SUBQ ONE ×2 (09:00→12:10)
[2023-12-23] MEDS ORDERED: METOPROLOL SUCCINATE 50 MG TABLET PO SCH (10:34)
[2023-12-23] MEDS: polyethylene glycoL 3350 17 GM PACKET PO SCH (12:18)
[2023-12-23] MEDS: CALCIUM CARBONATE CHEW 500 MG TABLET PO SCH (14:18)
[2023-12-23] MEDS: INSULIN GLARGINE-YFGN 300 UNIT/3 ML PEN SUBQ SCH (20:38)
[2023-12-23] MEDS: BENZONATATE 100 MG CAPSULE PO PRN (22:00)
[2023-12-24] MEDS: ACETAMINOPHEN 325 MG TABLET PO PRN (00:34)
[2023-12-24 05:48] LABS: BASOPHILS % (AUTO) 0.1 %; HCT - HEMATOCRIT 35.6 % (42.0-52.0); LYMPHOCYTES # (AUTO) 1.4 10^3/uL (1.5-3.5); LYMPHOCYTES % (AUTO) 12.7 %; MEAN CORPUSCULAR HEMOGLOBIN 33.6 pg (27.0-31.0); MEAN CORPUSCULAR HGB CONC 33.7 g/dL (32.0-36.0); MEAN CORPUSCULAR VOLUME 99.7 fL (80.0-94.0); MONOCYTES # (AUTO) 0.5 10^3/uL (0.0-1.0); MONOCYTES % (AUTO) 4.4 %; NEUTROPHILS # (AUTO) 9.1 10^3/uL (1.5-6.6); NEUTROPHILS % (AUTO) 82.5 %; PLT - PLATELET COUNT 307 10^3/uL (130-450); RED BLOOD COUNT 3.57 10^6/uL (4.70-6.10); RED CELL DISTRIBUTION WIDTH 12.2 % (12.0-15.0)
[2023-12-24 06:34] LABS: CREATININE 1.1 mg/dL (0.6-1.3); POTASSIUM 4.8 mmol/L (3.5-4.5)
[2023-12-24] MEDS ORDERED: METOPROLOL SUCCINATE 50 MG TABLET PO SCH ×2 (09:00)
[2023-12-24] MEDS: METOPROLOL SUCCINATE 25 MG TABLET PO SCH (09:46)
[2023-12-24] MEDS: dexAMETHasone 4 MG TABLET PO SCH (09:47)
--- NOTE | 2023-12-24 10:07 | PROVIDER PROGRESS NOTE ---
Assessment/Plan - Problem List (1) Acute hypoxemic respiratory failure due to COVID-19 Assessment/Plan: (1) Acute hypoxemic respiratory failure due to COVID-19 Assessment/Plan: Patient presents with approximately 10 days of symptoms to include cough, SOB, malaise. States also with cough and similar symptoms though no diagnosis of COVID. Denies vaccination. Continue supplemental O2, po decadron, supportive care. Continues on 6 L's NC, will try to wean down prior to getting home O2 evaluation. Rib fractures L 8-10 -Appreciate help from surgery -Continue pain control to include acetaminophen, toradol, [place] prn -iv Dilaudid prn -PT and OT consult Chronic AF -Patient states does not take any BB, CCB, but does take DOAC -Will start Toprol XL, continue telemetry, continue DOAC -F/u with outpatient cardiology R hydroureteronephrosis -Appreciate input from Urology, no surgical intervention at this time. -To start Flomax, monitor for orthostatic blood pressure changes LUCILA -creatinine 1.1, improved, continue to hold ACEi, can resume on discharge T2DM -ADA diet, basal insulin, prandial insulin, SSI. -will restart metformin as creatinine normal (2) Atrial fibrillation Qualifiers: Atrial fibrillation type: persistent (not longstanding) Qualified Code(s): I48.19 - Other persistent atrial fibrillation; I48.1 - Persistent atrial fibrillation (3) Ribs, multiple fractures Qualifiers: Encounter type: initial encounter Fracture type: closed Laterality: left Qualified Code(s): S22.42XA - Multiple fractures of ribs, left side, initial encounter for closed fracture (2) Atrial fibrillation Qualifiers: Atrial fibrillation type: persistent (not longstanding) Qualified Code(s): I48.19 - Other persistent atrial fibrillation; I48.1 - Persistent atrial fibrillation (3) Ribs, multiple fractures Qualifiers: Encounter type: initial encounter Fracture type: closed Laterality: left Qualified Code(s): S22.42XA - Multiple fractures of ribs, left side, initial encounter for closed fracture (2) Atrial fibrillation Qualifiers: Atrial fibrillation type: persistent (not longstanding) Qualified Code(s): I48.19 - Other persistent atrial fibrillation; I48.1 - Persistent atrial fibrillation (3) Ribs, multiple fractures Qualifiers: Encounter type: initial encounter Fracture type: closed Laterality: left Qualified Code(s): S22.42XA - Multiple fractures of ribs, left side, initial encounter for closed fracture - Current Meds Current Meds: Current Medications Generic Name Dose Route Start Last Admin Trade Name Freq PRN Reason Stop Dose Admin Acetaminophen 650 mg 12/21/23 22:41 12/24/23 00:34 Acetaminophen 325 Mg Tablet PO 650 mg Q4HR PRN Administration Pain 1 to 4, or Fever Apixaban 5 mg 12/22/23 09:00 12/24/23 09:47 Apixaban 5 Mg Tablet PO 5 mg BID TORSTEN Administration Aspirin 81 mg 12/22/23 09:00 12/24/23 09:48 Aspirin Chew 81 Mg Tablet PO 81 mg DAILY TORSTEN Administration Benzonatate 100 mg 12/23/23 21:30 12/24/23 09:46 Benzonatate 100 Mg Capsule PO 100 mg TID PRN Administration Cough Calcium Carbonate/Glycine 500 mg 12/23/23 14:00 12/24/23 09:47 Calcium Carbonate Chew 500 Mg Tablet PO 500 mg BID TORSTEN Administration Dexamethasone 6 mg 12/24/23 09:00 12/24/23 09:47 Dexamethasone 4 Mg Tablet PO 6 mg DAILY TORSTEN Administration Gabapentin 600 mg 12/21/23 23:00 12/24/23 06:18 Gabapentin 300 Mg Capsule PO 600 mg TID TORSTEN Administration Guaifenesin 600 mg 12/22/23 21:00 12/24/23 09:48 Guaifenesin 600 Mg Tablet PO 600 mg BID TORSTEN Administration Insulin Human Lispro 2 - 10 unit 12/23/23 08:00 12/24/23 09:49 Insulin Lispro 300 Unit/3 Ml Pen SUBQ 10 unit 0800,1200,1700,2100 TORSTEN Administration Protocol Metoprolol Succinate 25 mg 12/24/23 09:00 12/24/23 09:46 Metoprolol Succinate 25 Mg Tablet PO 25 mg DAILY TORSTEN Administration Polyethylene Glycol 17 gm 12/23/23 12:00 12/24/23 09:46 Polyethylene Glycol 3350 17 Gm Packet PO 17 gm DAILY TORSTEN Administration Sodium Chloride 10 ml 12/22/23 01:00 12/24/23 09:48 Sodium Chloride Flush 0.9% 10 Ml Syringe IVP 10 ml 0100,0900,1700 TORSTEN Administration Tamsulosin HCl 0.4 mg 12/22/23 21:00 12/24/23 09:48 Tamsulosin 0.4 Mg Capsule PO 0.4 mg DAILY TORSTEN Administration Throat Lozenges 1 lozenge 12/22/23 16:02 12/24/23 03:33 Benzocaine/Menthol Lozenge MM 1 lozenge Q2HR PRN Administration Throat pain - Lab Result Fish Bone Diagrams: 12/24/23 05:06 12/24/23 05:06 - Additional Planning My Orders: My Active Orders 12/23/23 Lunch DIET [Carb-controlled Diet] [DIET] 12/23/23 14:00 Calcium Carbonate [Tums] 500 mg PO BID 12/24/23 09:00 Metoprolol Succinate [Toprol Xl] 25 mg PO DAILY dexAMETHasone [Decadron] 6 mg PO DAILY 12/24/23 12:00 Insulin Lispro [Humalog Kwikpen U-100] 8 unit SUBQ TIDWM 12/24/23 17:00 metFORMIN [Glucophage] 500 mg PO BIDWM 12/24/23 21:00 Insulin Glargine-Yfgn [Semglee] 10 unit SUBQ BID Objective Vital Signs: Vital Signs - 24 hr 12/23/23 12/23/23 12/23/23 12:00 12:29 14:18 Temperature 36.7 C 36.7 C Heart Rate [ 85 85 Brachial] Respiratory 20 20 18 Rate Blood Pressure [Left Brachial artery] Blood Pressure 124/60 124/60 [Right Brachial artery] O2 Saturation 91 L 91 L 91 L If not protocol 6 6 2.5 : Oxygen Flow, liters/minute 12/23/23 12/23/23 12/23/23 16:00 20:05 20:27 Temperature 36.6 C 36.8 C Heart Rate [ 84 85 Brachial] Respiratory 16 20 Rate Blood Pressure 102/51 L 122/64 [Left Brachial artery] Blood Pressure [Right Brachial artery] O2 Saturation 91 L 90 L If not protocol 2.5 2.5 2.5 : Oxygen Flow, liters/minute 12/23/23 12/24/23 12/24/23 23:45 00:27 00:40 Temperature 36.7 C Heart Rate [ 84 Brachial] Respiratory 18 Rate Blood Pressure [Left Brachial artery] Blood Pressure 125/66 [Right Brachial artery] O2 Saturation 86 L 90 L If not protocol 6 3 6 : Oxygen Flow, liters/minute 12/24/23 12/24/23 12/24/23 04:50 07:20 08:17 Temperature 36.4 C L 36.6 C Heart Rate [ 82 83 Brachial] Respiratory 22 20 Rate Blood Pressure [Left Brachial artery] Blood Pressure 115/66 131/70 H [Right Brachial artery] O2 Saturation 95 92 If not protocol 6 6 6 : Oxygen Flow, liters/minute Oxygen O2 Source Oxymizer Oxygen Flow Rate 4 I&O (Last 24 Hrs): Intake and Output Totals x24h 12/22/23 12/23/23 12/24/23 23:59 23:59 23:59 Intake Total 2570 1970 280 Output Total 1350 1200 750 Balance 1220 770 -470 - Results Results: Laboratory Results WBC 11.0 x10^3/uL (4.8-10.8) H 12/24/23 05:06 RBC 3.57 10^6/uL (4.70-6.10) L 12/24/23 05:06 Hgb 12.0 g/dL (14.0-18.0) L 12/24/23 05:06 Hct 35.6 % (42.0-52.0) L 12/24/23 05:06 MCV 99.7 fL (80.0-94.0) H 12/24/23 05:06 MCH 33.6 pg (27.0-31.0) H 12/24/23 05:06 MCHC 33.7 g/dL (32.0-36.0) 12/24/23 05:06 RDW 12.2 % (12.0-15.0) 12/24/23 05:06 Plt Count 307 10^3/uL (130-450) 12/24/23 05:06 MPV 12.0 fL (7.4-11.4) H 12/24/23 05:06 Neut # (Auto) 9.1 10^3/uL (1.5-6.6) H 12/24/23 05:06 Lymph # (Auto) 1.4 10^3/uL (1.5-3.5) L 12/24/23 05:06 [place] # (Auto) 0.5 10^3/uL (0.0-1.0) 12/24/23 05:06 Eos # (Auto) 0.0 10^3/uL (0.0-0.7) 12/24/23 05:06 Baso # (Auto) 0.0 10^3/uL (0.0-0.1) 12/24/23 05:06 Absolute Nucleated RBC 0.00 x10^3/uL 12/24/23 05:06 Nucleated RBC % 0.0 /100WBC 12/24/23 05:06 Sodium 130 mmol/L (135-145) L 12/24/23 05:06 Potassium 4.8 mmol/L (3.5-4.5) H 12/24/23 05:06 Chloride 100 mmol/L (101-111) L 12/24/23 05:06 Carbon Dioxide 22 mmol/L (21-32) 12/24/23 05:06 Anion Gap 8.0 (6-13) 12/24/23 05:06 BUN 47 mg/dL (6-20) H 12/24/23 05:06 Creatinine 1.1 mg/dL (0.6-1.3) 12/24/23 05:06 Estimated GFR (MDRD) 65 (>89) L 12/24/23 05:06 Glucose 271 mg/dL (74-104) H 12/24/23 05:06 POC Whole Bld Glucose 332 mg/dL (70 - 100) H 12/24/23 08:03 Calcium 9.0 mg/dL (8.5-10.3) 12/24/23 05:06 Total Bilirubin 0.5 mg/dL (0.2-1.0) 12/21/23 15:53 AST 17 IU/L (10-42) 12/21/23 15:53 ALT 16 IU/L (10-60) 12/21/23 15:53 Alkaline Phosphatase 73 IU/L (42-121) 12/21/23 15:53 B-Natriuretic Peptide 274 pg/mL (5-100) H 12/21/23 15:53 Total Protein 6.5 g/dL (6.4-8.9) 12/21/23 15:53 Albumin 3.2 g/dL (3.2-5.5) 12/21/23 15:53 Globulin 3.3 g/dL (2.1-4.2) 12/21/23 15:53 Albumin/Globulin Ratio 1.0 (1.0-2.2) 12/21/23 15:53 Lipase 22 U/L (11-82) 12/21/23 15:53 Vitamin B12 447 pg/mL (180-914) 12/22/23 09:43 Urine Color YELLOW 12/21/23 20:37 Urine Clarity CLEAR (CLEAR) 12/21/23 20:37 Urine pH 5.5 PH (5.0-7.5) 12/21/23 20:37 Ur Specific [place] 1.020 (1.002-1.030) 12/21/23 20:37 Urine Protein 30 mg/dL (NEGATIVE) H 12/21/23 20:37 Urine Glucose (UA) 100 mg/dL (NEGATIVE) H 12/21/23 20:37 Urine Ketones 15 mg/dL (NEGATIVE) H 12/21/23 20:37 Urine Occult Blood NEGATIVE (NEGATIVE) 12/21/23 20:37 Urine Nitrite NEGATIVE (NEGATIVE) 12/21/23 20:37 Urine Bilirubin NEGATIVE (NEGATIVE) 12/21/23 20:37 Urine Urobilinogen 0.2 (NORMAL) E.U./dL (NORMAL) 12/21/23 20:37 Ur Leukocyte Esterase NEGATIVE (NEGATIVE) 12/21/23 20:37 Urine RBC 0-5 /HPF (0-5) 12/21/23 20:37 Urine WBC 0-3 /HPF (0-3) 12/21/23 20:37 Ur Squamous Epith Cells FEW Squamous (<= Few) 12/21/23 20:37 Urine Bacteria Few /HPF (None Seen) 12/21/23 20:37 Ur Microscopic Review INDICATED 12/21/23 20:37 Urine Culture Comments NOT INDICATED 12/21/23 20:37 Nasal Adenovirus (PCR) NOT DETECTED 12/21/23 15:55 Nasal B. parapertussis DNA (PCR) NOT DETECTED 12/21/23 15:55 Nasal Coronavir 229E PCR NOT DETECTED 12/21/23 15:55 Nasal Coronavir HKU1 PCR NOT DETECTED 12/21/23 15:55 Nasal Coronavir NL63 PCR NOT DETECTED 12/21/23 15:55 Nasal Coronavir OC43 PCR NOT DETECTED 12/21/23 15:55 Nasal Enterovir/Rhinovir PCR NOT DETECTED 07/15/24 15:55 Nasal Influenza B PCR NOT DETECTED 12/21/23 15:55 Nasal Influenza A PCR NOT DETECTED 12/21/23 15:55 Nasal Parainfluen 1 PCR NOT DETECTED 12/21/23 15:55 Nasal Parainfluen 2 PCR NOT DETECTED 12/21/23 15:55 Nasal Parainfluen 3 PCR NOT DETECTED 12/21/23 15:55 Nasal Parainfluen 4 PCR NOT DETECTED 12/21/23 15:55 Nasal RSV (PCR) NOT DETECTED 12/21/23 15:55 Nasal B.pertussis DNA PCR NOT DETECTED 12/21/23 15:55 Nasal C.pneumoniae (PCR) NOT DETECTED 12/21/23 15:55 [place] Human Metapneumo PCR NOT DETECTED 12/21/23 15:55 Nasal M.pneumoniae (PCR) NOT DETECTED 12/21/23 15:55 Nasal SARS-CoV-2 (PCR) DETECTED A 12/21/23 15:55 - Procedures Procedures: Procedures EXCISION OF SIGMOID COLON, ENDO (07/09/22) Sepsis Event Note (H) - Evaluation Current Stage of Sepsis: Ruled out
[2023-12-24] MEDS: INSULIN LISPRO 300 UNIT/3 ML PEN SUBQ SCH (12:16)
[2023-12-24] MEDS: metFORMIN 500 MG TABLET PO SCH (16:29)
[2023-12-24] MEDS: guaiFENesin/CODEINE 5 ML UDC PO PRN (16:29)
[2023-12-24] MEDS: INSULIN GLARGINE-YFGN 300 UNIT/3 ML PEN SUBQ SCH (20:55)
[2023-12-25 05:42] LABS: HCT - HEMATOCRIT 34.5 % (42.0-52.0); HGB - HEMOGLOBIN 12.2 g/dL (14.0-18.0); LYMPHOCYTES # (AUTO) 1.5 10^3/uL (1.5-3.5); LYMPHOCYTES % (AUTO) 15.3 %; MEAN CORPUSCULAR HEMOGLOBIN 34.5 pg (27.0-31.0); MEAN CORPUSCULAR HGB CONC 35.4 g/dL (32.0-36.0); MEAN CORPUSCULAR VOLUME 97.5 fL (80.0-94.0); MEAN PLATELET VOLUME 11.3 fL (7.4-11.4); MONOCYTES # (AUTO) 0.7 10^3/uL (0.0-1.0); MONOCYTES % (AUTO) 6.7 %; NEUTROPHILS # (AUTO) 7.6 10^3/uL (1.5-6.6); NEUTROPHILS % (AUTO) 77.5 %; PLT - PLATELET COUNT 288 10^3/uL (130-450); RED BLOOD COUNT 3.54 10^6/uL (4.70-6.10); RED CELL DISTRIBUTION WIDTH 12.1 % (12.0-15.0); WHITE BLOOD COUNT 9.8 x10^3/uL (4.8-10.8)
[2023-12-25 06:11] LABS: CREATININE 1.1 mg/dL (0.6-1.3); POTASSIUM 4.7 mmol/L (3.5-4.5)
--- NOTE | 2023-12-25 08:22 | PROVIDER PROGRESS NOTE ---
Subjective - Prog Note Date Prog Note Date: 12/25/23 Prog Note Time: 08:20 - Subjective Pt reports feeling: Improved Subjective: The pt reports that he is improving slowly. His breathing is getting better slowly but he coughs and has some back pain after cough. No other related symptoms. No other modifying factors. The pt doesn't want remdesivir but he is okay with decadron. Objective - Vital Signs/Intake & Output Reviewed Vital Signs: Yes Vital Signs: Vital Signs x48h Temp Pulse Resp BP BP Pulse Ox O2 Flow Rate 12/25/23 07:50 36.5 C 86 20 138/74 H 93 4 12/25/23 07:10 4 12/25/23 05:31 36.3 C L 79 18 121/68 94 4 12/25/23 00:56 36.4 C L 80 16 122/76 95 4 Intake & Output: Intake & Output 12/22/23 12/23/23 12/24/23 12/25/23 23:59 23:59 23:59 23:59 Intake Total 2570 1970 1520 200 Output Total 1350 1200 2050 850 Balance 1220 770 -530 -650 - Objective General Appearance: positive: No acute distress, Alert Eyes Bilateral: positive: Normal inspection, EOMI Neck: positive: Nml inspection, No JVD, Trachea midline Respiratory: positive: Chest non-tender, No respiratory distress, Breath sounds nml Cardiovascular: positive: Irregularly irregular Abdomen: positive: Non-tender, Nml bowel sounds, No distention Skin: positive: Color nml, No rash Extremities: positive: Non-tender, Full ROM, No pedal edema Neurologic/Psychiatric: positive: Oriented x3 - Lab Results Fish Bones: 12/25/23 05:35 12/25/23 05:35 Other Labs: Lab Results x24hrs 12/25/23 12/25/23 12/25/23 Range/Units 07:52 05:35 05:35 WBC 9.8 (4.8-10.8) x10^3/uL RBC 3.54 L (4.70-6.10) 10^6/uL Hgb 12.2 L (14.0-18.0) g/dL Hct 34.5 L (42.0-52.0) % MCV 97.5 H (80.0-94.0) fL MCH 34.5 H (27.0-31.0) pg MCHC 35.4 (32.0-36.0) g/dL RDW 12.1 (12.0-15.0) % Plt Count 288 (130-450) 10^3/uL MPV 11.3 (7.4-11.4) fL Neut # (Auto) 7.6 H (1.5-6.6) 10^3/uL Lymph # (Auto) 1.5 (1.5-3.5) 10^3/uL [place] # (Auto) 0.7 (0.0-1.0) 10^3/uL Eos # (Auto) 0.0 (0.0-0.7) 10^3/uL Baso # (Auto) 0.0 (0.0-0.1) 10^3/uL Absolute Nucleated RBC 0.00 x10^3/uL Nucleated RBC % 0.0 /100WBC Sodium 130 L (135-145) mmol/L Potassium 4.7 H (3.5-4.5) mmol/L Chloride 100 L (101-111) mmol/L Carbon Dioxide 26 (21-32) mmol/L Anion Gap 4.0 L (6-13) BUN 39 H (6-20) mg/dL Creatinine 1.1 (0.6-1.3) mg/dL Estimated GFR (MDRD) 65 L (>89) Glucose 218 H (74-104) mg/dL POC Whole Bld Glucose 211 H (70 - 100) mg/dL Calcium 9.0 (8.5-10.3) mg/dL 12/24/23 12/24/23 12/24/23 Range/Units 20:35 16:27 12:02 WBC (4.8-10.8) x10^3/uL RBC (4.70-6.10) 10^6/uL Hgb (14.0-18.0) g/dL Hct (42.0-52.0) % MCV (80.0-94.0) fL MCH (27.0-31.0) pg MCHC (32.0-36.0) g/dL RDW (12.0-15.0) % Plt Count (130-450) 10^3/uL MPV (7.4-11.4) fL Neut # (Auto) (1.5-6.6) 10^3/uL Lymph # (Auto) (1.5-3.5) 10^3/uL Gentry # (Auto) (0.0-1.0) 10^3/uL Eos # (Auto) (0.0-0.7) 10^3/uL Baso # (Auto) (0.0-0.1) 10^3/uL Absolute Nucleated RBC x10^3/uL Nucleated RBC % /100WBC Sodium (135-145) mmol/L Potassium (3.5-4.5) mmol/L Chloride (101-111) mmol/L Carbon Dioxide (21-32) mmol/L Anion Gap (6-13) BUN (6-20) mg/dL Creatinine (0.6-1.3) mg/dL Estimated GFR (MDRD) (>89) Glucose (74-104) mg/dL POC Whole Bld Glucose 201 H 227 H 322 H (70 - 100) mg/dL Calcium (8.5-10.3) mg/dL ABX Reporting Has patient been on IV antibiotics over the past 48 hours?: No Sepsis Event Note (H) - Evaluation Current Stage of Sepsis: Ruled out Assessment/Plan - Problem List (1) Acute hypoxemic respiratory failure due to COVID-19 Impression: O2 requirement is coming down. Will try to wean down and possibly send him home with home O2. Continue with decadron. The pt says he doesn't want remdesivir. (2) Atrial fibrillation Impression: HR is controlled. Continue with toprol XL. Qualifiers: Atrial fibrillation type: longstanding persistent Qualified Code(s): I48.11 - Longstanding persistent atrial fibrillation (3) COVID Impression: Continue with decadron. The pt declined Remdesivir. (4) Hydroureteronephrosis Impression: Flomax per urology. Urology will follow him up as an outpt also. (5) Ribs, multiple fractures Impression: Pain control. General surgery consulted the patient. Appreciate the input. Qualifiers: Encounter type: initial encounter Fracture type: closed Laterality: left Qualified Code(s): S22.42XA - Multiple fractures of ribs, left side, initial encounter for closed fracture
[2023-12-25] MEDS: CHOLECALCIFEROL 25 MCG TABLET PO SCH (11:59)
[2023-12-25] MEDS: fentaNYL 100 MCG/2 ML VIAL IVP PRN (14:26)
[2023-12-25] MEDS: metFORMIN 500 MG TABLET PO SCH (16:46)
[2023-12-26 05:32] LABS: BASOPHILS % (AUTO) 0.1 %; HCT - HEMATOCRIT 38.7 % (42.0-52.0); HGB - HEMOGLOBIN 13.1 g/dL (14.0-18.0); LYMPHOCYTES # (AUTO) 1.8 10^3/uL (1.5-3.5); LYMPHOCYTES % (AUTO) 18.4 %; MEAN CORPUSCULAR HEMOGLOBIN 33.2 pg (27.0-31.0); MEAN CORPUSCULAR HGB CONC 33.9 g/dL (32.0-36.0); MEAN CORPUSCULAR VOLUME 98.2 fL (80.0-94.0); MEAN PLATELET VOLUME 11.9 fL (7.4-11.4); MONOCYTES # (AUTO) 0.8 10^3/uL (0.0-1.0); MONOCYTES % (AUTO) 7.5 %; NEUTROPHILS # (AUTO) 7.4 10^3/uL (1.5-6.6); NEUTROPHILS % (AUTO) 73.5 %; PLT - PLATELET COUNT 304 10^3/uL (130-450); RED BLOOD COUNT 3.94 10^6/uL (4.70-6.10); RED CELL DISTRIBUTION WIDTH 12.1 % (12.0-15.0)
[2023-12-26 06:05] LABS: CALCIUM 9.3 mg/dL (8.5-10.3); POTASSIUM 4.2 mmol/L (3.5-4.5)
--- NOTE | 2023-12-26 10:24 | PROVIDER PROGRESS NOTE ---
Subjective - Prog Note Date Prog Note Date: 12/26/23 Prog Note Time: 10:22 - Subjective Pt reports feeling: No change Subjective: The pt reports that he can't take full breath in but it gets better with oxygen. No acute overnight events. No other related symptoms. No other modifying factors. Objective - Vital Signs/Intake & Output Reviewed Vital Signs: Yes Vital Signs: Vital Signs x48h Temp Pulse Resp BP BP Pulse Ox O2 Flow Rate 12/26/23 08:19 36.3 C L 95 17 134/75 H 92 2 12/26/23 05:59 36.6 C 70 16 124/70 94 4 Intake & Output: Intake & Output 12/23/23 12/24/23 12/25/23 12/26/23 23:59 23:59 23:59 23:59 Intake Total 1970 1520 1995 180 Output Total 1200 0 2200 1100 Balance 770 -530 -204 -920 - Objective General Appearance: positive: No acute distress, Alert Eyes Bilateral: positive: Normal inspection, EOMI Neck: positive: Nml inspection, No JVD, Trachea midline Respiratory: positive: Chest non-tender, No respiratory distress, Other (Few scattered exp wheezing) Cardiovascular: positive: Regular rate & rhythm Abdomen: positive: Non-tender, Nml bowel sounds, No distention Skin: positive: Color nml, No rash, Warm, Dry Extremities: positive: Non-tender, Full ROM, No pedal edema Neurologic/Psychiatric: positive: Oriented x3 - Lab Results Fish Bones: 12/26/23 04:59 12/26/23 04:59 Other Labs: Lab Results x24hrs 12/26/23 12/26/23 12/26/23 Range/Units 08:33 04:59 04:59 WBC 10.0 (4.8-10.8) x10^3/uL RBC 3.94 L (4.70-6.10) 10^6/uL Hgb 13.1 L (14.0-18.0) g/dL Hct 38.7 L (42.0-52.0) % MCV 98.2 H (80.0-94.0) fL MCH 33.2 H (27.0-31.0) pg MCHC 33.9 (32.0-36.0) g/dL RDW 12.1 (12.0-15.0) % Plt Count 304 (130-450) 10^3/uL MPV 11.9 H (7.4-11.4) fL Neut # (Auto) 7.4 H (1.5-6.6) 10^3/uL Lymph # (Auto) 1.8 (1.5-3.5) 10^3/uL Glades # (Auto) 0.8 (0.0-1.0) 10^3/uL Eos # (Auto) 0.0 (0.0-0.7) 10^3/uL Baso # (Auto) 0.0 (0.0-0.1) 10^3/uL Absolute Nucleated RBC 0.00 x10^3/uL Nucleated RBC % 0.0 /100WBC Sodium 133 L (135-145) mmol/L Potassium 4.2 (3.5-4.5) mmol/L Chloride 101 (101-111) mmol/L Carbon Dioxide 25 (21-32) mmol/L Anion Gap 7.0 (6-13) BUN 36 H (6-20) mg/dL Creatinine 1.0 (0.6-1.3) mg/dL Estimated GFR (MDRD) 72 L (>89) Glucose 127 H (74-104) mg/dL POC Whole Bld Glucose 135 H (70 - 100) mg/dL Calcium 9.3 (8.5-10.3) mg/dL 12/25/23 12/25/23 12/25/23 Range/Units 20:55 16:23 10:47 WBC (4.8-10.8) x10^3/uL RBC (4.70-6.10) 10^6/uL Hgb (14.0-18.0) g/dL Hct (42.0-52.0) % MCV (80.0-94.0) fL MCH (27.0-31.0) pg MCHC (32.0-36.0) g/dL RDW (12.0-15.0) % Plt Count (130-450) 10^3/uL MPV (7.4-11.4) fL Neut # (Auto) (1.5-6.6) 10^3/uL Lymph # (Auto) (1.5-3.5) 10^3/uL Glades # (Auto) (0.0-1.0) 10^3/uL Eos # (Auto) (0.0-0.7) 10^3/uL Baso # (Auto) (0.0-0.1) 10^3/uL Absolute Nucleated RBC x10^3/uL Nucleated RBC % /100WBC Sodium (135-145) mmol/L Potassium (3.5-4.5) mmol/L Chloride (101-111) mmol/L Carbon Dioxide (21-32) mmol/L Anion Gap (6-13) BUN (6-20) mg/dL Creatinine (0.6-1.3) mg/dL Estimated GFR (MDRD) (>89) Glucose (74-104) mg/dL POC Whole Bld Glucose 223 H 198 H 283 H (70 - 100) mg/dL Calcium (8.5-10.3) mg/dL - Diagnostic Imaging Diagnostic Imaging Results: positive: Final report reviewed ABX Reporting Has patient been on IV antibiotics over the past 48 hours?: No Sepsis Event Note (H) - Evaluation Current Stage of Sepsis: Ruled out Assessment/Plan - Problem List (1) Acute hypoxemic respiratory failure due to COVID-19 Impression: Improving slowly. Will continue with decadron. (2) Atrial fibrillation Impression: HR is controlled. Continue with toprol XL. Qualifiers: Atrial fibrillation type: longstanding persistent Qualified Code(s): I48.11 - Longstanding persistent atrial fibrillation (3) COVID Impression: Continue with decadron and O2 support. (4) Hydroureteronephrosis Impression: Flomax per urology. Urology will follow him up as an outpt also. (5) Ribs, multiple fractures Impression: Pain control. General surgery consulted the patient. Appreciate the input. Qualifiers: Encounter type: initial encounter Fracture type: closed Laterality: left Qualified Code(s): S22.42XA - Multiple fractures of ribs, left side, initial encounter for closed fracture (6) Hyperglycemia due to type 2 diabetes mellitus Impression: BG is better controlled with increased metformin dose. BG is high due to decadron.
[2023-12-26] MEDS: oxyCODONE 5 MG TABLET PO PRN (21:56)
[2023-12-27 05:22] LABS: BASOPHILS % (AUTO) 0.1 %; EOSINOPHILS % (AUTO) 0.2 %; HCT - HEMATOCRIT 37.5 % (42.0-52.0); HGB - HEMOGLOBIN 12.9 g/dL (14.0-18.0); LYMPHOCYTES # (AUTO) 2.1 10^3/uL (1.5-3.5); LYMPHOCYTES % (AUTO) 19.1 %; MEAN CORPUSCULAR HEMOGLOBIN 33.6 pg (27.0-31.0); MEAN CORPUSCULAR HGB CONC 34.4 g/dL (32.0-36.0); MEAN CORPUSCULAR VOLUME 97.7 fL (80.0-94.0); MEAN PLATELET VOLUME 11.4 fL (7.4-11.4); MONOCYTES # (AUTO) 0.9 10^3/uL (0.0-1.0); MONOCYTES % (AUTO) 8.1 %; NEUTROPHILS # (AUTO) 7.8 10^3/uL (1.5-6.6); NEUTROPHILS % (AUTO) 71.9 %; PLT - PLATELET COUNT 287 10^3/uL (130-450); RED BLOOD COUNT 3.84 10^6/uL (4.70-6.10); RED CELL DISTRIBUTION WIDTH 12.2 % (12.0-15.0); WHITE BLOOD COUNT 10.8 x10^3/uL (4.8-10.8)
[2023-12-27 05:45] LABS: CALCIUM 9.2 mg/dL (8.5-10.3); CREATININE 1.2 mg/dL (0.6-1.3); POTASSIUM 4.3 mmol/L (3.5-4.5)
--- NOTE | 2023-12-27 08:09 | Discharge Plan ---
Discharge Plan Problem Reviewed?: Yes Disposition: Home, Self Care Condition: Fair Prescriptions: oxyCODONE [Roxicodone] 5 mg PO Q4HR PRN #20 tab PRN Reason: Moderate Pain (Level 4-6) dexAMETHasone [Decadron] 6 mg PO DAILY #4 tab Tamsulosin [Flomax] 0.4 mg PO DAILY #30 cap Diet: Diabetic Activity Restrictions: Activity as Tolerated Shower Restrictions: No Additional Instructions or Follow Up instructions: Follow up with PCP in 1 week. Follow up with Dr. Mclaughlin, urology and his office will contact for the appointment. No Smoking: If you smoke, Please STOP! Call for help. Follow-up with: Az Mclaughlin MD [Provider Admit Priv/Credential] -
--- NOTE | 2023-12-27 08:17 | DISCHARGE SUMMARY ---
Discharge Summary Admit Date: 12/21/23 Discharge Date: 12/27/23 Discharging Provider: Ariana Callahan Code Status: Attempt Resuscitation Condition at Discharge: Fair Discharge Disposition: 01 Home, Self Care - DIAGNOSES Admission Diagnoses: Acute hypoxemic respiratory failure with Covid -19 infection Multiple rib fractures Atrial fibrillation Hydroureteronephrosis Discharge Diagnoses with Status of Each Condition: Acute hypoxemic respiratory failure with Covid -19 infection: Improved but requires home O2 Multiple rib fractures: Improving with pain meds Atrial fibrillation: Rate has been controlled. Hydroureteronephrosis: Stable and needs outpt follow up with urology - [facility] History of Present Illness: Per admitting provider's H&P, "As per ER "78-year-old male positive for COVID, has hypoxia secondary to COVID. Incidentally he did have a fall 10 days ago and suffered multiple rib fractures, is not having significant pain with this. Had atrial fibrillation with rapid ventricular response, this was easily controlled with 2 pushes of IV diltiazem 10 mg each. He was then maintained on oral Cardizem 60 mg p.o. Does not need a diltiazem drip. I consulted the hospitalist at approximately 5:15 PM. The hospitalist, Dr. Leigh, is concerned that the patient may develop RVR again and need a diltiazem gtt, therefore could need the icu later in the hospital stay. He also request that the general surgery service be consulted for the 10-day old rib fractures. I did speak with Dr. Orosco, he will consult on the patient, these are not acute rib fractures and these do not need acute management from the surgical service. The patient was maintained on oxygen in the emergency department, does not need antibiotics at this time. " Patient seen and examined via telemedicine, patient informed and consent obtained, I informed that I am in [place] and this is telemedicine encounter and he is ok with the encounter. Patient is a retired [employer] member, lives with his , had home RN comes to help and take care of who has open wounds and found patient was not looking well, checked his pulse ok and hr and both abnormal he denies any other complaint, has been having cough for last 3-4 days and with every time he coughs his chest hurts. He was seen by surgeon prior to me in the ER. Also states just had physical done and was told everything was fine not aware of right sided hydro which I have discussed with Dr Begum from ER and he will be seen by Urology tomorrow. He is on nasal mask for oxygen stable hemodynamics heart rate improved compared to at time of arrival in ER. " - CONSULTS | PROCEDURES Consultations: Urology, Dr. Mclaughlin and General surgery, Dr. Orosco Procedures: None - HOSPITAL COURSE Hospital Course: 1. Acute hypoxemic respiratory failure with Covid -19 infection Upon admission he was put on decadron and O2 support. the pt didn't want to take remdesivir. his respiratory status has been improving and his O2 requirement came down to 2 liters from 6 liters. he dropped O2 sat to 88% on RA so home O2 will be set up after RT eval. 2. Multiple rib fractures The pt was seen by general surgery and pain control has been recommended. He has been using tylenol and oxycodone as needed. Upon discharge he will use tylenol and oxycodone as needed base. 3. Atrial fibrillation with RVR The pt takes propranolol and he was put on toprol XL during his hospital stay. his HR has been controlled. upon discharge he can go back to propranolol. 4. Hydroureteronephrosis The pt was seen by Dr. Mclaughlin, urology and flomax has been started. The pt will need to follow up with Dr. Mclaughlin as an outpt and his office will contact for the appointment. He will continue with flomax upon discharge. - ALLERGIES Allergies/Adverse Reactions: Allergies Allergy/AdvReac Type Severity Reaction Status Date / Time No Known Drug Allergies Allergy Verified 12/21/23 15:46 - MEDICATIONS Home Medications: Ambulatory Orders Medication Instructions Recorded Confirmed Apixaban [Eliquis] 5 mg PO BID 07/08/22 12/22/23 Aspirin [Scooba Aspirin] 81 mg PO DAILY 07/08/22 12/22/23 Felodipine [Felodipine ER] 10 mg PO DAILY 07/08/22 12/22/23 Gabapentin [Neurontin] 600 mg PO TID 07/08/22 12/22/23 Lisinopril [Zestril] 20 tab PO DAILY 07/08/22 12/22/23 Propranolol ER [Inderal LA] 60 mg PO QPM 07/08/22 12/22/23 Simvastatin [Zocor] 20 mg PO QPM 07/08/22 12/22/23 metFORMIN [Glucophage] 1,000 mg PO BID 07/08/22 12/22/23 Ascorbic Acid [Vitamin C] 1 tab PO DAILY 12/22/23 12/22/23 Multivitamin [Theragran] 1 tab PO DAILY 12/22/23 12/22/23 Omeprazole 20 mg PO QDAC 12/22/23 12/22/23 Tamsulosin [Flomax] 0.4 mg PO DAILY #30 cap 12/27/23 dexAMETHasone [Decadron] 6 mg PO DAILY #4 tab 12/27/23 oxyCODONE [Roxicodone] 5 mg PO Q4HR PRN #20 tab 12/27/23 - PHYSICAL EXAM AT DISCHARGE General Appearance: positive: No acute distress, Alert Eyes Bilateral: positive: Normal inspection, EOMI Respiratory: positive: Chest non-tender, No respiratory distress Cardiovascular: positive: Irregularly irregular - LABS Result Diagrams: 12/27/23 05:18 12/27/23 05:18 - DIAGNOSTIC IMAGING Diagnostic Imaging Results: Final report reviewed - SEPSIS Current Stage of Sepsis: Ruled out - FOLLOW UP Follow Up: PCP in 1 week, Urology office will contact for the follow up appointment. - TIME SPENT Time Spent in Discharge (Minutes): 45
[2023-12-27 09:25] VITALS: BP 146/80; O2SAT 93
== END 2023-12-27 12:18 | disposition home or self-care (01) | DRG 177 ==
LOC: EDUNIT# → ED 15:32 → MS2 22:42
PROVIDERS: ADMIT Internal Medicine; ATTEND Internal Medicine
DX: U07.1 COVID-19 (principal); I48.91 Unspecified atrial fibrillation; E11.9 Type 2 diabetes mellitus without complications; R09.02 Hypoxemia; J96.01 Acute respiratory failure with hypoxia; W01.0XXA Fall on same level from slipping, tripping and stumbling without subsequent striking against object, initial encounter; Y92.481 Parking lot as the place of occurrence of the external cause; S22.42XA Multiple fractures of ribs, left side, initial encounter for closed fracture; S09.90XA Unspecified injury of head, initial encounter; N20.0 Calculus of kidney; N13.30 Unspecified hydronephrosis; Z20.818 Contact with and (suspected) exposure to other bacterial communicable diseases; Z20.828 Contact with and (suspected) exposure to other viral communicable diseases; I48.19 Other persistent atrial fibrillation; N17.9 Acute kidney failure, unspecified; E87.1 Hypo-osmolality and hyponatremia; I10 Essential (primary) hypertension; E78.00 Pure hypercholesterolemia, unspecified; E87.6 Hypokalemia; N21.0 Calculus in bladder; W19.XXXA Unspecified fall, initial encounter; E11.65 Type 2 diabetes mellitus with hyperglycemia; T38.0X5A Adverse effect of glucocorticoids and synthetic analogues, initial encounter; Y92.239 Unspecified place in hospital as the place of occurrence of the external cause; Z79.01 Long term (current) use of anticoagulants; Z79.82 Long term (current) use of aspirin; Z79.84 Long term (current) use of oral hypoglycemic drugs; Z79.899 Other long term (current) drug therapy
CPT/HCPCS: 36415; 70450; 71250; 74176; 80048; 80053; 81001; 82607; 82746; 83690; 83880; 85025; 87633; 93005; 93307; 94761; 96365; 96375; 96376; 99285; A9270; J1815; J8540; 81003; 87086